=== PATIENT | female | born 1930 | race Caucasian/White ===

== ENCOUNTER 2018-03-01 07:47 | Inpatient (IN) ==
--- NOTE | 2018-03-01 07:53 | ED ---
HPI General Chief complaint: Neuro Symptoms/Deficit Stated complaint: Emergent Time Seen by Provider: 03/01/18 07:49 Source: EMS Mode of arrival: EMS Limitations: language barrier (Aphasic) and altered mental status History of Present Illness HPI narrative: Elderly female brought in by EMS for altered mental status. The patient was reportedly found by a friend at home, slumped to the left side in a kitchen chair. She was last seen normal sometime yesterday morning but had today 's newspaper on the table in front of her. The patient is non-verbal and unable to contribute any information to HPI. Her name is reportedly Lynn. Unknown past medical history. Related Data Allergies Allergy/AdvReac Type Severity Reaction Status Date / Time No Allergy Information Allergy Unverified 03/01/18 07:50 Available Review of Systems ROS Unobtainable ROS Unobtainable: unobtainable due to mental status PMFSH History History Provided By: Online Content Coordinator / EMT Medical History Medical History HTN (hypertension) (Acute) Medical history unknown (Acute) Surgical history unknown (Acute) Social History Social History Substance History: Unable to Obtain Smoking Status: Unknown if ever smoked How Often Do You Have a Drink Containing Alcohol: Unable to Obtain Recent Travel in [facility] within the Last 8 Weeks: No Recent Out of Country Travel within the Last 8 Weeks: No Exam Const Other: Non-verbal, no acute distress HENMT Other: Left-sided facial paresis Eyes Pupils: PERRL Chest Chest: normal inspection of the chest Resp Effort & Inspection: normal respiratory effort Auscultation: no rhonchi and no wheezes Cardio Rate: regular rate Rhythm: regular rhythm GI Inspection: non-distended Palpation: soft and nontender Skin General: no rashes or lesions noted Neuro Other: No movement against gravity of RUE or RLE 4/5 motor strength of LUE, spontaneous movement of LLE but does not follow commands Non-verbal Left-sided facial droop Extrem Other: 2+ pitting edema to knee of left lower extremity to knee Course Initial Documented Vital Signs Temperature 98.0 F 03/01/18 07:48 Pulse Rate 87 03/01/18 07:48 Respiratory Rate 19 03/01/18 07:48 Blood Pressure 199/87 H 03/01/18 07:48 Pulse Oximetry 98 03/01/18 07:48 Last Documented Vital Signs Temperature 98.0 F 03/01/18 07:48 Pulse Rate 75 03/01/18 07:50 Respiratory Rate 19 03/01/18 07:48 Blood Pressure 199/87 H 03/01/18 07:48 Pulse Oximetry 98 03/01/18 07:56 NIH Stroke Scale NIHSS Time Completed NIHSS Time Completed: 07:52 NIH Stroke Scale Level of Consciousness: 0-Alert Orientation Questions: 2-Neither task correct Responds to Commands: 2-Neither task correct Gaze Eye Movement: 0-Horizontal movement WNL Visual [place]: 0-No visual field defect (Unable to assess, non-verbal) Facial Movement: 3-Complete unilateral palsy Motor Functions Arm LEFT: 0-No drift Motor Functions Arm RIGHT: 3-No effort against gravity Motor Functions Leg LEFT: 1-Drift before 5 seconds Motor Functions Leg RIGHT: 3-No effort against gravity Limb Ataxia: 0-No ataxia (Unable to assess) Sensory Loss: 0-No sensory loss (Unable to assess) Best Language: 3-Mute or global aphasia Articulation: UN-Intubated / Barriers (Non-verbal) Extinction or Inattention Sensory: 0-Absent (Unable to assess) Total: 17 Medical Decision Making [facility] Narrative Medical decision making narrative: Assessment: Elderly female presenting with altered mental status, suspected stroke, unknown time of onset (last seen normal yesterday) Plan: EKG and monitor [facility] Labs CXR CTH A stroke alert was not called as onset time is estimated to be approximately 24 hrs ago Addendum: Case discussed with Dr. Chatterjee of [facility]; patient requires inpatient admission for acute ischemic CVA. Medical Screen Exam Complete: Yes Emergency Medical Condition: Yes Differential Diagnosis Differential Diagnosis: Differential diagnosis includes, but is not limited to: CVA, ICH, arrhythmia, lab abnormality Lab Data Lab results reviewed: Yes I reviewed the patient's lab results. Result diagrams: 03/01/18 07:50 03/01/18 07:50 Lab Results 03/01/18 03/01/18 03/01/18 Range/Units 07:50 07:50 07:50 WBC 8.7 (4.0-11.0) th/mm3 RBC 3.99 L (4.00-5.30) mil/mm3 Hgb 13.6 (11.6-15.3) gm/dL Hct 40.5 (35.0-46.0) % MCV 101.4 H (80.0-100.0) fL MCH 34.2 H (27.0-34.0) pg MCHC 33.7 (32.0-36.0) % RDW 13.6 (11.6-17.2) % Plt Count 242 (150-450) th/mm3 MPV 9.1 (7.0-11.0) fL Prelim Diff (Auto) [employer] Client [employer] Analyst Neut % (Auto) 70.5 H (16.0-70.0) % Lymph % (Auto) 16.6 (9.0-44.0) % [place] % (Auto) 11.1 H (0.0-8.0) % Eos % (Auto) 1.1 (0.0-4.0) % Baso % (Auto) 0.7 (0.0-2.0) % Neut # (Auto) 6.1 (1.8-7.7) th/mm3 Lymph # (Auto) 1.4 (1.0-4.8) th/mm3 [place] # (Auto) 1.0 H (0.0-0.9) th/mm3 Eos # (Auto) 0.1 (0.0-0.4) th/mm3 Baso # (Auto) 0.1 (0.0-0.2) th/mm3 WBC Differential . Differential Comment Auto diff final PT 11.1 (9.8-11.6) sec INR 1.1 Ratio APTT 23.8 (23.4-31.7) sec Sodium 137 (136-145) meq/L Potassium 3.7 (3.5-5.1) meq/L Chloride 104 (98-107) meq/L Carbon Dioxide 24.7 (21.0-32.0) meq/L Anion Gap 8 (5-15) meq/L BUN 14 (7-18) mg/dL Creatinine 0.88 (0.50-1.00) mg/dL Estimated GFR 55 L (>89) mL/min POC Glucose (68-110) mg/dl Random Glucose 106 (74-106) mg/dL Calcium 8.9 (8.5-10.1) mg/dL Magnesium 2.0 (1.5-2.5) mg/dL Total Bilirubin 0.5 (0.2-1.0) mg/dL AST 15 (15-37) U/L ALT 14 (10-53) U/L Alkaline Phosphatase 100 (45-117) U/L Troponin I Less than 0.02 L (0.02-0.05) ng/mL Total Protein 8.2 (6.4-8.2) g/dL Albumin 3.5 (3.4-5.0) g/dL TSH 5.570 H (0.358-3.740) uIU/mL Urine Color (Yellw/Straw) Urine Clarity (Clear) Urine pH (5.0-8.5) Ur Specific [place] (1.002-1.035) Urine Protein (Neg-Trace) mg/dL Urine Glucose (UA) (Negative) mg/dL Urine Ketones (Negative) mg/dL Urine Occult Blood (Negative) Urine Nitrate (Negative) Urine Bilirubin (Negative) Urine Urobilinogen (Less than 2) mg/dL Ur Leukocyte Esterase (Negative) Urine RBC (0-3) /hpf Urine WBC (0-5) /hpf Urine Bacteria (None) /hpf Micro UA Comment Ur Microscopic Review Urine Culture Comments 03/01/18 03/01/18 Range/Units 07:52 08:15 WBC (4.0-11.0) th/mm3 RBC (4.00-5.30) mil/mm3 Hgb (11.6-15.3) gm/dL Hct (35.0-46.0) % MCV (80.0-100.0) fL MCH (27.0-34.0) pg MCHC (32.0-36.0) % RDW (11.6-17.2) % Plt Count (150-450) th/mm3 MPV (7.0-11.0) fL Prelim Diff (Auto) Neut % (Auto) (16.0-70.0) % Lymph % (Auto) (9.0-44.0) % [place] % (Auto) (0.0-8.0) % Eos % (Auto) (0.0-4.0) % Baso % (Auto) (0.0-2.0) % Neut # (Auto) (1.8-7.7) th/mm3 Lymph # (Auto) (1.0-4.8) th/mm3 [place] # (Auto) (0.0-0.9) th/mm3 Eos # (Auto) (0.0-0.4) th/mm3 Baso # (Auto) (0.0-0.2) th/mm3 WBC Differential Differential Comment PT (9.8-11.6) sec INR Ratio APTT (23.4-31.7) sec Sodium (136-145) meq/L Potassium (3.5-5.1) meq/L Chloride (98-107) meq/L Carbon Dioxide (21.0-32.0) meq/L Anion Gap (5-15) meq/L BUN (7-18) mg/dL Creatinine (0.50-1.00) mg/dL Estimated GFR (>89) mL/min POC Glucose 108 (68-110) mg/dl Random Glucose (74-106) mg/dL Calcium (8.5-10.1) mg/dL Magnesium (1.5-2.5) mg/dL Total Bilirubin (0.2-1.0) mg/dL AST (15-37) U/L ALT (10-53) U/L Alkaline Phosphatase (45-117) U/L Troponin I (0.02-0.05) ng/mL Total Protein (6.4-8.2) g/dL Albumin (3.4-5.0) g/dL TSH (0.358-3.740) uIU/mL Urine Color Yellow (Yellw/Straw) Urine Clarity Clear (Clear) Urine pH 6.0 (5.0-8.5) Ur Specific [place] 1.005 (1.002-1.035) Urine Protein Negative (Neg-Trace) mg/dL Urine Glucose (UA) Negative (Negative) mg/dL Urine Ketones Negative (Negative) mg/dL Urine Occult Blood Negative (Negative) Urine Nitrate Positive H (Negative) Urine Bilirubin Negative (Negative) Urine Urobilinogen Less than 2 (Less than 2) mg/dL Ur Leukocyte Esterase Small H (Negative) Urine RBC 1 (0-3) /hpf Urine WBC 12 H (0-5) /hpf Urine Bacteria Few H (None) /hpf Micro UA Comment Cath-culture ind Ur Microscopic Review Microscopic reviewed Urine Culture Comments Cath-cult indicated Imaging Data Radiologist's impression: Chest X-Ray 03/01/18 07:50 CONCLUSION: 1. Cardiomegaly. 2. No focal infiltrate or pulmonary vascular congestion. Head CT 03/01/18 07:50 CONCLUSION: 1. Mild cerebral atrophy. 2. 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 3. No acute infarct, acute hemorrhage, midline shift or extra-axial fluid collections. . ECG Data Attestation: I personally reviewed and interpreted this ECG as follows: Interpretation: Rate: 92 BPM Rhythm: Sinus with bigeminy [place]: Normal Intervals: QTc 412 ms Q waves: aVL, V2 T waves: Inverted in III ST segments: No elevations or depressions Impression: Non-specific EKG, bigeminy, no previous EKG available for comparison Discharge Plan Discharge Disposition Patient Disposition: ED Admit(ED Internal Use Only) Discharge Condition Condition: Stable Discharge Order Discharge Orders: ED Use Only Admit Order (Routine); Ordered 03/01/18 Ordered By: Mariposa Marte Discharge Details Diagnosis: Neurologic deficit due to acute ischemic cerebrovascular accident (CVA) Physicians Team ED Provider: Mariposa Marte Primary Care Provider: UNKNOWN, Status ED Status: Pending Admission
--- NOTE | 2018-03-01 08:16 | CT ---
EXAM DATE: 03/01/2018 8:10 AM EST AGE/SEX: 89 years / Female INDICATIONS: Altered mental status. Left sided facial droop and right sided weakness. CLINICAL DATA: This is the patient's initial encounter. Patient reports that signs and symptoms have been present for 1 day and indicates a pain score of Nonresponsive. MEDICAL/SURGICAL HISTORY: Non-responsive. Non-responsive. RADIATION DOSE: 34.26 CTDI (mGy) COMPARISON: No prior exams available for comparison. TECHNIQUE: CT of the head without contrast. Using automated exposure control and adjustment of the mA and/or kV according to patient size, radiation dose was kept as low as reasonably achievable to ob tain optimal diagnostic quality images. DICOM format image data is available electronically for revi ew and comparison. FINDINGS: Cerebrum: Mild cerebral atrophy is noted. 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 There is no acute infarct, acute hemorrhage, midline shift or extra-axial fluid collections. Posterior Fossa: The cerebellum and brainstem are intact. The 4th ventricle is midline. The cerebe llopontine angle is unremarkable. Extracranial: The visualized portion of the orbits is intact. Skull: The calvaria is intact. No evidence of skull fracture. CONCLUSION: 1. Mild cerebral atrophy. 2. 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 3. No acute infarct, acute hemorrhage, midline shift or extra-axial fluid collections. . Electronically signed by: Charles Pineda MD Board Certified Radiologist 03/01/2018 8:15 AM EST
--- NOTE | 2018-03-01 08:33 | XR ---
EXAM DATE: 03/01/2018 8:26 AM EST AGE/SEX: 89 years / Female INDICATIONS: Shortness of breath, non-responsive. CLINICAL DATA: This is the patient's initial encounter. Patient reports that signs and symptoms have been present for 1 day and indicates a pain score of Nonresponsive. MEDICAL/SURGICAL HISTORY: Non-responsive. Non-responsive. COMPARISON: No prior exams available for comparison. FINDINGS: The heart is enlarged. The pulmonary vascular pattern is normal. The lungs are clear. CONCLUSION: 1. Cardiomegaly. 2. No focal infiltrate or pulmonary vascular congestion. Electronically signed by: Charles Pineda MD Board Certified Radiologist 03/01/2018 8:32 AM EST
[2018-03-01 08:45] LABS: Baso # (Auto) 0.1 th/mm3 (0.0-0.2); Baso % (Auto) 0.7 % (0.0-2.0); Eos # (Auto) 0.1 th/mm3 (0.0-0.4); Eos % (Auto) 1.1 % (0.0-4.0); Hematocrit 40.5 % (35.0-46.0); Hemoglobin 13.6 gm/dL (11.6-15.3); Lymph # (Auto) 1.4 th/mm3 (1.0-4.8); Lymph % (Auto) 16.6 % (9.0-44.0); Mean Corpuscular HGB Conc 33.7 % (32.0-36.0); Mean Corpuscular Hemoglobin 34.2 pg (27.0-34.0); Mean Corpuscular Volume 101.4 fL (80.0-100.0); Mean Platelet Volume 9.1 fL (7.0-11.0); Mono % (Auto) 11.1 % (0.0-8.0); Neut # (Auto) 6.1 th/mm3 (1.8-7.7); Neut % (Auto) 70.5 % (16.0-70.0); Platelet Count 242 th/mm3 (150-450); Red Blood Count 3.99 mil/mm3 (4.00-5.30); Red Cell Distribution Width 13.6 % (11.6-17.2); White Blood Count 8.7 th/mm3 (4.0-11.0)
[2018-03-01 08:49] LABS: Bacteria,Urine Few /hpf; Bilirubin,Urine Negative (Negative); Clarity,Urine Clear (Clear); Color,Urine Yellow (Yellw/Straw); Glucose,Urine (UA) Negative (Negative); Leukocyte Esterase,Urine Small (Negative); Nitrite,Urine Positive (Negative); Specific Gravity,Urine 1.005 (1.002-1.035)
[2018-03-01 08:56] LABS: Activated Partial Thrombo Time 23.8 sec (23.4-31.7); INR 1.1 Ratio; Prothrombin Time 11.1 sec (9.8-11.6)
[2018-03-01 09:03] LABS: Albumin 3.5 g/dL (3.4-5.0); Anion Gap 8 meq/L (5-15); Aspartate Aminotransferase 15 U/L (15-37); Blood Urea Nitrogen 14 mg/dL (7-18); Calcium 8.9 mg/dL (8.5-10.1); Carbon Dioxide 24.7 meq/L (21.0-32.0); Chloride 104 meq/L (98-107); Glomerular Filtration Rate 55 mL/min (>89); Glucose,Random 106 mg/dL (74-106); Potassium 3.7 meq/L (3.5-5.1); Sodium 137 meq/L (136-145)
[2018-03-01 09:04] LABS: Alanine Aminotransferase 14 U/L (10-53)
[2018-03-01 09:14] LABS: Alkaline Phosphatase 100 U/L (45-117); Total Protein 8.2 g/dL (6.4-8.2)
[2018-03-01] MEDS ORDERED: Bisacodyl 10 MG Supp RECTAL PRN (09:37)
[2018-03-01] MEDS ORDERED: Labetalol HCl Inj 100 MG/20 ML Vial IV.PUSH PRN ×2 (09:41→10:00)
[2018-03-01] MEDS ORDERED: Dextrose 50% in Water 50 ML Vial IV.PUSH PRN (09:41)
--- NOTE | 2018-03-01 09:53 | CT ---
EXAM DATE: 03/01/2018 9:45 AM EST AGE/SEX: 89 years / Female INDICATIONS: Left sided facial droop and right sided weakness. CLINICAL DATA: This is the patient's initial encounter. Patient reports that signs and symptoms have been present for 1 day and indicates a pain score of Nonresponsive. MEDICAL/SURGICAL HISTORY: Non-responsive. Non-responsive. RADIATION DOSE: 9.29 CTDI (mGy) ; Combined studies COMPARISON: . TECHNIQUE: Volumetric scanning was performed using a multi-row detector CT scanner during bolus infu aec of 95 ml Omnipaque 350 (iohexol) nonionic water-soluble contrast as a cumulative dose for multi ple exams. The data was post processed with a variety of visualization algorithms including full vo lume maximum intensity projection, multi-planar sliding thin slab reformation, curved planar reformat ion, and surface rendering techniques. Using automated exposure control and adjustment of the mA and /or kV according to patient size, radiation dose was kept as low as reasonably achievable to obtain o ptimal diagnostic quality images. DICOM format image data is available electronically for review and comparison. FINDINGS: The left internal carotid artery is totally occluded. There is poor reconstitution of the left anteri or and middle cerebral vessels. The right MCA is unremarkable. Right INTRUSION ANALYST is unremarkable. The left PC A is notable for moderate disease in the PII-III segments. CONCLUSION: Totally occluded left internal carotid artery with very tenuous intracranial flow reconstitution of t he anterior circulation vessels on the left Electronically signed by: Delfino Watson MD Board Certified Radiologist 03/01/2018 9:52 AM EST
--- NOTE | 2018-03-01 09:53 | CT ---
EXAM DATE: 03/01/2018 9:49 AM EST AGE/SEX: 89 years / Female INDICATIONS: Left sided facial droop, right sided weakness. CLINICAL DATA: This is the patient's initial encounter. Patient reports that signs and symptoms have been present for 1 day and indicates a pain score of Nonresponsive. MEDICAL/SURGICAL HISTORY: Non-responsive. Non-responsive. RADIATION DOSE: 9.29 CTDI (mGy) ; Combined studies COMPARISON: No prior exams available for comparison. TECHNIQUE: Volumetric scanning was performed using a multirow detector CT scanner during bolus infus ion of 95 ml Omnipaque 350 (iohexol) nonionic water-soluble contrast as a cumulative dose for multip le exams. The data was postprocessed with a variety of visualization algorithms including full-volu me maximum intensity projection, multiplanar sliding thin-slab reformation, curved-planar reformation , and surface-rendering techniques. Using automated exposure control and adjustment of the mA and/or kV according to patient size, radiation dose was kept as low as reasonably achievable to obtain opti mal diagnostic quality images. DICOM format image data is available electronically for review and co mparison. FINDINGS: Aortic Arch: There is a three-vessel origin of the great vessels from the aorta. No evidence of ost ial narrowing Right Carotid: The common carotid artery is intact. The carotid bulb has a normal configuration wit hout ulceration or narrowing. The internal carotid artery lumen is smooth without stenosis. The ext ernal carotid artery is intact. Left Carotid: The common carotid artery is intact. The carotid bulb has a normal configuration with out ulceration or narrowing. There is occlusion of the left proximal internal carotid artery. The ext ernal carotid artery is intact. Vertebrals: The vertebral arteries have a symmetric diameter. No stenotic lesions are seen. Percent stenosis is calculated using the diameter of the stenotic region over the diameter of the nor mal distal internal carotid artery. CONCLUSION: 1. 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 Electronically signed by: Charles Pineda MD Board Certified Radiologist 03/01/2018 9:52 AM EST
[2018-03-01] MEDS ORDERED: Aspirin 300 MG Supp RECTAL ONE (09:59)
[2018-03-01 10:10] LABS: Amphetamine Screen,Urine Neg (Neg); Barbiturate Screen,Urine Neg (Neg); Cannabinoid Screen,Urine Neg (Neg); Cocaine Screen,Urine Neg (Neg)
[2018-03-01 10:24] LABS: Opiate Screen,Urine Neg (Neg)
--- NOTE | 2018-03-01 10:59 | MR ---
EXAM DATE: 03/01/2018 10:31 AM EST AGE/SEX: 89 years / Female INDICATIONS: Altered mental status. Aphasia. CLINICAL DATA: This is the patient's initial encounter. Patient reports that signs and symptoms have been present for 1 day and indicates a pain score of 0/10. MEDICAL/SURGICAL HISTORY: . Unknown. . Unknown. COMPARISON: [facility] [place], CTA HEAD W CONTRAST W 3D, 03/01/2018. [facility] [place], CT HEAD W/O CONTRAST, 03/01/2018. . TECHNIQUE: Multiplanar, multisequence examination of the brain was performed without contrast. FINDINGS: Cerebrum: There is evidence of a large area of signal abnormality involving almost the entire left p arietal lobe as well as patchy areas within the left basal ganglia and left temporal lobe consistent with acute/subacute infarct in the left middle cerebral artery distribution. Tiny focal areas of sign al abnormality are also noted involving the right occipital cortex on the diffusion-weighted images s uggesting small acute/subacute cortical infarcts within the right posterior cerebral artery distribut ion. No acute hemorrhage is noted. There is an old lacunar infarct involving the genu of the corpus c allosum. Diffuse cerebral atrophy is noted. There is no midline shift or extra-axial bleed. No flow-v oid is identified within the left internal cerebral artery and visualized portion of the left middle cerebral artery. White Matter: Scattered periventricular white matter small vessel ischemic changes are noted bilatera lly. Posterior Fossa: The cerebellum and brainstem are intact. The 4th ventricle is midline. The ce rebellopontine angle is unremarkable. The cerebellar tonsils are normal in position. Diffusion Imaging: No focal areas of restricted diffusion are seen. No evidence of acute infarction . Extracranial: The visualized portions of the orbits and paranasal sinuses are unremarkable. CONCLUSION: 1. Evidence of a large area of signal abnormality involving almost the entire left parietal lobe as well as patchy areas within the left basal ganglia and left temporal lobe consistent with acute/subac coy infarct in the left middle cerebral artery distribution. 2. Tiny focal areas of signal abnormality are also noted involving the right occipital cortex on the diffusion-weighted images suggesting small acute/subacute cortical infarcts within the right posteri or cerebral artery distribution. 3. No flow-void is identified within the left internal cerebral artery and visualized portion of the left middle cerebral artery. 4. No acute hemorrhage, midline shift or extra-axial bleed. 5. 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 6. Diffuse cerebral atrophy. Electronically signed by: Charles Pineda MD Board Certified Radiologist 03/01/2018 10:58 AM EST
--- NOTE | 2018-03-01 11:29 | ECHRPT ---
Indication: CVA/TIA CONCLUSIONS The left ventricular systolic function is normal with an estimated ejection fraction in the range of 60-65%. Normal left ventricular size. Mild to moderate concentric left ventricular hypertrophy. No regional wall motion abnormalities are present. The right atrial size is moderately dilated. The left atrial size is moderately dilated. Mild mitral annular calcification. Trace mitral valve regurgitation. There is mild tricuspid regurgitation. The estimated pulmonary arterial pressure is 44 mmHg. BP: / HR: Rhythm: Atrial fibrillation MEASUREMENTS (Male / Female) Normal Values Technical Quality:Excellent 2D ECHO LV Diastolic Diameter PLAX 3.9 cm 4.2 - 5.9 / 3.9 - 5.3 cm LV Systolic Diameter PLAX 2.8 cm IVS Diastolic Thickness 1.0 cm 0.6 - 1.0 / 0.6 - 0.9 cm LVPW Diastolic Thickness 1.0 cm 0.6 - 1.0 / 0.6 - 0.9 cm LV Relative Wall Thickness 0.5 LVOT Diameter 1.8 cm M-MODE Aortic Root Diameter MM 2.1 cm LA Systolic Diameter MM 4.7 cm LA Ao Ratio MM 2.2 AV Cusp Separation MM 1.5 cm DOPPLER AV Peak Velocity 114.0 cm/s AV Peak Gradient 5.2 mmHg LVOT Peak Velocity 92.8 cm/s LVOT Peak Gradient 3.4 mmHg AV Area Cont Eq pk 2.1 cm MV Area PHT 6.5 cm LV E' Lateral Velocity 12.8 cm/s LV E' Septal Velocity 2.9 cm/s TR Peak Velocity 292.0 cm/s TR Peak Gradient 34.1 mmHg Right Atrial Pressure 10.0 mmHg Pulmonary Artery Systolic Pressu 44.1 mmHg Right Ventricular Systolic Press 44.1 mmHg PV Peak Velocity 130.0 cm/s PV Peak Gradient 6.8 mmHg FINDINGS LEFT VENTRICLE The left ventricular systolic function is normal with an estimated ejection fraction in the range of 60-65%. Normal left ventricular size. Mild to moderate concentric left ventricular hypertrophy. No regional wall motion abnormalities are present. RIGHT VENTRICLE Normal right ventricular size and systolic function. LEFT ATRIUM The left atrial size is moderately dilated. RIGHT ATRIUM The right atrial size is moderately dilated. ATRIAL SEPTUM Normal atrial septal thickness without atrial level shunting by limited color doppler interrogation. AORTA The aortic root and proximal ascending aorta are normal in size on limited imaging. MITRAL VALVE Mild mitral annular calcification. Trace mitral valve regurgitation. AORTIC VALVE Trileaflet aortic valve. No aortic valve stenosis or regurgitation. TRICUSPID VALVE Structurally normal tricuspid valve. There is mild tricuspid regurgitation. The estimated pulmonary arterial pressure is 44 mmHg. PULMONARY VALVE Trivial pulmonary valve regurgitation. VESSELS The inferior vena cava is normal in size. PERICARDIUM No pericardial effusion. Thierno Dawson MD (Electronically Signed) Final Date:01 March 2018 11:28
[2018-03-01] MEDS: Sod Chloride 0.9% Inj 1,000 ML IV.CONT SCH (11:45)
--- NOTE | 2018-03-01 12:09 | P.HPIM ---
History of Present Illness Primary Care Physician: UNKNOWN Chief Complaint: Found unresponsive History of Present Illness: Edda is an elderly female who was found unresponsive by her neighbor. She was sitting on the chair. She has right facial droop and right sided weakness. She was last seen normal yesterday morning. Discussed with her neighbor and son, she has history of hypertension and chronic left lower extremity lymphedema. No previous surgeries. She does not smoke and occasionally drinks. She takes Norvasc, Lasix and potassium. 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 EKG interpreted by me with atrial fibrillation with bigeminy. All other systems reviewed negative Inpatient Certification Inpatient Certification: I certify that the inpatient services were ordered in accordance with Medicare regulations governing the order. This includes certification that hospital inpatient services are reasonable and necessary and in the case of services not specified as inpatient-only under 42 CFR 419.22(n), that they are appropriately provided as inpatient services in accordance to with the 2-midnight benchmark under 43 CFR 412.3(e) Estimated Total Length of Stay (Days): 2 Plans for Post Hospital Care: SNF Review of Systems Review of Systems: all other systems reviewed are negative [facility] Medical History Medical History HTN (hypertension) (Acute) Medical history unknown (Acute) Surgical history unknown (Acute) Social History Social History Substance History: Unable to Obtain Smoking Status: Unknown if ever smoked How Often Do You Have a Drink Containing Alcohol: Unable to Obtain Recent Travel in [facility] within the Last 8 Weeks: No Recent Out of Country Travel within the Last 8 Weeks: No Immunization History Tetanus Immunization: Unable to Assess Medications and Allergies Allergies Allergy/AdvReac Type Severity Reaction Status Date / Time No Allergy Information Allergy Unverified 03/01/18 07:50 Available Home Medications Medication Instructions Recorded Confirmed Type amlodipine 10 mg PO DAILY 03/01/18 03/01/18 History furosemide 20 mg PO DAILY 03/01/18 03/01/18 History potassium chloride 10 meq PO DAILY 03/01/18 03/01/18 History Active Medications: Active Medications Al Hydroxide/Mg Hydroxide (Milk Of Magnesia Liq) 30 ml PO Q12H PRN PRN Reason: Mild Constipation Aspirin (Aspirin Supp) 300 mg RECTAL DAILY GOMEZ Bisacodyl (Dulcolax Supp) 10 mg RECTAL DAILY PRN PRN Reason: SEVERE CONSITIPATION Dextrose (D50w Vial) 50 ml IV.PUSH UNSCH PRN PRN Reason: PER HYPOGLYCEMIA PROTOCOL Enalaprilat (Vasotec Inj) 1.25 mg IV.PUSH Q4H PRN PRN Reason: For SBP > 220 or DBP > 120 Glucagon (Glucagon Inj) 1 mg OTHER UNSCH PRN PRN Reason: for Hypoglycemia Protocol Sodium Chloride (Ns Inj) 1,000 mls @ 70 mls/hr IV.CONT .[id number] [facility] Insulin Aspart (Novolog Insulin Correctional Sugar Inj) 0 unit SQ ACHS GOMEZ; Protocol Labetalol HCl (Trandate Inj) 10 mg IV.PUSH Q2H PRN PRN Reason: For SBP > 220 or DBP > 120 Lactulose (Lactulose Liq) 30 ml PO DAILY PRN PRN Reason: SEVERE CONSITIPATION Pantoprazole Sodium (Protonix Inj) 40 mg IV.PUSH Q24H GOMEZ Senna/Docusate Sodium (Denisha-Colace) 1 tab PO BID [facility] Sennosides (Senokot) 17.2 mg PO Q12H PRN PRN Reason: Moderate Constipation Sodium Chloride (Ns Flush) 2 ml IV.FLUSH BID GOMEZ Sodium Chloride (Ns Flush) 2 ml IV.FLUSH PRN PRN PRN Reason: FLUSH AFTER USING IV ACCESS Physical Exam Vital signs: Last Vital Signs Temp 98.0 F 03/01/18 07:48 Pulse 117 H 03/01/18 11:30 Resp 20 03/01/18 08:15 BP 137/83 03/01/18 11:30 Pulse Ox 96 03/01/18 11:30 Intake & Output 02/27/18 02/28/18 03/01/18 03/02/18 06:59 06:59 06:59 06:59 Output Total 700 / 700 Balance -700 / -700 Weight 72.91 kg Narrative: GENERAL: Well-nourished in no distress. SKIN: Warm and dry. HEAD: Atraumatic. Normocephalic. EYES: Pupils equal and round. No scleral icterus. No injection or drainage. ENT: No nasal bleeding or discharge. Mucous membranes pink and moist. NECK: Trachea midline. No JVD. CARDIOVASCULAR: Irregularly irregular RESPIRATORY: No accessory muscle use. Clear to auscultation. Breath sounds equal bilaterally. GASTROINTESTINAL: Abdomen soft, non-tender, nondistended. MUSCULOSKELETAL: Extremities without clubbing, cyanosis left lower extremity pitting edema. No obvious deformities. NEUROLOGICAL: Lethargic awakens with painful stimuli obvious right facial droop , right upper and left lower extremity weakness Results Labs CBC & Chem 7: 03/01/18 07:50 03/01/18 07:50 Imaging Impressions Chest X-Ray 03/01/18 07:50 CONCLUSION: 1. Cardiomegaly. 2. No focal infiltrate or pulmonary vascular congestion. Head CT 03/01/18 07:50 CONCLUSION: 1. Mild cerebral atrophy. 2. 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 3. No acute infarct, acute hemorrhage, midline shift or extra-axial fluid collections. . Head CTA 03/01/18 08:16 CONCLUSION: Totally occluded left internal carotid artery with very tenuous intracranial flow reconstitution of the anterior circulation vessels on the left Neck CTA 03/01/18 08:16 CONCLUSION: 1. 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 Head MRI 03/01/18 08:17 CONCLUSION: 1. Evidence of a large area of signal abnormality involving almost the entire left parietal lobe as well as patchy areas within the left basal ganglia and left temporal lobe consistent with acute/subacute infarct in the left middle cerebral artery distribution. 2. Tiny focal areas of signal abnormality are also noted involving the right occipital cortex on the diffusion-weighted images suggesting small acute/ subacute cortical infarcts within the right posterior cerebral artery distribution. 3. No flow-void is identified within the left internal cerebral artery and visualized portion of the left middle cerebral artery. 4. No acute hemorrhage, midline shift or extra-axial bleed. 5. 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 6. Diffuse cerebral atrophy. Caprini VTE Risk Assessment Caprini VTE Risk Assessment: Moderate/High Risk (score >= 2) Caprini Risk Assessment Model: Point Value = 1 Point Value = 2 Point Value = 3 Point Value = 5 Age 41-60 Minor surgery BMI > 25 kg/m2 Swollen legs Varicose veins or History of unexplained or recurrent spontaneous Oral contraceptives or hormone replacement Sepsis (< 1 month) Serious lung disease, including pneumonia (< 1 month) Abnormal pulmonary function Acute myocardial infarction Congestive heart failure (< 1 month) History of inflammatory bowel disease Medical patient at bed rest Age 61-74 Arthroscopic surgery Major open surgery (> 45 min) Laparoscopic surgery (> 45 min) Malignancy Confined to bed (> 72 hours) Immobilizing plaster cast Central venous access Age >= 75 History of VTE Family history of VTE Factor V Leiden Prothrombin [id number] Lupus anticoagulant Anticardiolipin antibodies Elevated serum homocysteine Heparin-induced thrombocytopenia Other congenital or acquired thrombophilia Stroke (< 1 month) Elective arthroplasty Hip, pelvis, or leg fracture Acute spinal cord injury (< 1 month) Prophylaxis Regimen: Total Risk Factor Score Risk Level Prophylaxis Regimen 0-1 Low Early ambulation 2 Moderate Order ONE of the following: *Sequential Compression Device (SCD) *Heparin 5000 units SQ BID 3-4 Higher Order ONE of the following medications: *Heparin 5000 units SQ TID *Enoxaparin/Lovenox 40 mg SQ daily (WT < 150 kg, CrCl > 30 mL/min) *Enoxaparin/Lovenox 30 mg SQ daily (WT < 150 kg, CrCl > 10-29 mL/min) *Enoxaparin/Lovenox 30 mg SQ BID (WT < 150 kg, CrCl > 30 mL/min) AND/OR *Sequential Compression Device (SCD) 5 or more Highest Order ONE of the following medications: *Heparin 5000 units SQ TID (Preferred with Epidurals) *Enoxaparin/Lovenox 40 mg SQ daily (WT < 150 kg, CrCl > 30 mL/min) *Enoxaparin/Lovenox 30 mg SQ daily (WT < 150 kg, CrCl > 10-29 mL/min) *Enoxaparin/Lovenox 30 mg SQ BID (WT < 150 kg, CrCl > 30 mL/min) AND *Sequential Compression Device (SCD) Assessment and Plan Plan This is a elderly female was found unresponsive by her neighbor. She was sitting on the chair. She has right facial droop and right sided weakness. She was last seen normal yesterday morning. Discussed with her neighbor and son , she has history of hypertension and chronic left lower extremity lymphedema. No previous surgeries. She does not smoke and occasionally drinks. She takes Norvasc, Lasix and potassium. 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 EKG interpreted by me with atrial fibrillation with bigeminy. 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 Patient will be admitted to ICU with stroke workup follow-up echocardiogram, lipid profile and A1c. Head of bed flat, permissive hypertension and start aspirin per rectum. Consult neurology, PT/OT/ST. New-onset A. fib. Cardizem drip as needed to keep heart rate less than 100. Check TSH and echocardiogram Abnormal urinalysis. Follow-up urine culture DVT prophylaxis with SCD and early ambulation. Pharmacological prophylaxis per neurology.
[2018-03-01] MEDS: Pantoprazole Inj 40 MG Vial IV.PUSH SCH (12:47)
[2018-03-01] MEDS: Insulin NovoLOG Aspart Correctional Sugar Inj SQ SCH ×3 (12:48→20:47)
[2018-03-01] MEDS: dilTIAZem Inj 125 MG in Sodium Chlor 0.9% Inj 100 ML IV.CONT PRN (15:57)
[2018-03-01] MEDS ORDERED: Phenylephrine Inj 40 MG in Sodium Chlor 0.9% Inj 496 ML IV.CONT PRN (17:24)
[2018-03-01] MEDS: Potassium Chlor 20 mEq Premix 20 MEQ/100 ML PIGGYBACK IV.SIG SCH ×2 (18:22→20:10)
[2018-03-01] MEDS: Senna/Docusate Sodium 8.6/50 MG Tablet PO SCH (20:10)
[2018-03-01] MEDS: Metoprolol Tartrate 25 MG Tablet PO SCH (20:10)
--- NOTE | 2018-03-01 20:29 | ECG ---
Date Performed: 03/01/2018 Time Performed: 07:56:51 PTAGE: 89 years EKG: ATRIAL FIBRILLATION WITH ABERRANT CONDUCTION OR VENTRICULAR PREMATURE COMPLEXES MINIMAL VOL TAGE CRITERIA FOR LVH, CONSIDER NORMAL VARIANT ST DEVIATION AND MODERATE T-WAVE ABNORMALITY, CONSIDER INFERIOR ISCHEMIA ABNORMAL ECG NO PREVIOUS TRACING DOCTOR: Brina Warner Interpretating Date/Time 03/01/2018 20:26:26
[2018-03-02] MEDS: Sod Chloride 0.9% Inj 1,000 ML IV.CONT SCH ×2 (04:12→15:40)
[2018-03-02 04:37] LABS: Albumin 3.4 g/dL (3.4-5.0); Anion Gap 11 meq/L (5-15); Aspartate Aminotransferase 29 U/L (15-37); Blood Urea Nitrogen 17 mg/dL (7-18); Calcium 8.5 mg/dL (8.5-10.1); Carbon Dioxide 23.5 meq/L (21.0-32.0); Chloride 106 meq/L (98-107); Glomerular Filtration Rate 55 mL/min (>89); Glucose,Random 121 mg/dL (74-106); Potassium 4.3 meq/L (3.5-5.1); Sodium 140 meq/L (136-145)
[2018-03-02 04:38] LABS: Alanine Aminotransferase 16 U/L (10-53); Cholesterol 209 mg/dL (120-200); Triglycerides 74 mg/dL (42-150)
[2018-03-02 04:41] LABS: Alkaline Phosphatase 99 U/L (45-117); Chol/HDL Ratio 2.35 Ratio; HDL Cholesterol 88.7 mg/dL (40.0-60.0); LDL Cholesterol,Calculated 106 mg/dL (0-99); Total Protein 8.2 g/dL (6.4-8.2)
[2018-03-02] MEDS: Insulin NovoLOG Aspart Correctional Sugar Inj SQ SCH ×4 (08:00→20:50)
[2018-03-02] MEDS: Metoprolol Tartrate 25 MG Tablet PO SCH (08:02)
[2018-03-02] MEDS: Senna/Docusate Sodium 8.6/50 MG Tablet PO SCH ×2 (08:02→20:49)
[2018-03-02] MEDS ORDERED: Aspirin 300 MG Supp RECTAL SCH (09:00)
[2018-03-02] MEDS: Pantoprazole Inj 40 MG Vial IV.PUSH SCH (12:02)
--- NOTE | 2018-03-02 13:57 | MB ---
cc: Daniele Silvestre MD, PhD DATE: 03/02/2018 REASON FOR CONSULTATION: Stroke. HISTORY OF PRESENT ILLNESS: Ms. Macario is an 88-year-old woman brought to the hospital by EMS for alteration in mental status. She was found at home by her friend, slumped to the left side with right-sided weakness, inability to talk, was brought to the hospital. She underwent evaluation with a CT scan of the brain which showed an old lacunar stroke in the posterior limb of the left internal capsule. Otherwise, unremarkable for age. She had a CT angiogram of the head as well showing a totally occluded left internal carotid artery with very tenuous intracranial flow with reconstitution of the anterior circulation vessels on the left side. Neck CTA showed occlusion of the proximal left internal carotid artery. The patient was also found to be in atrial fibrillation which apparently is new for her. She had an MRI of the brain obtained as well which indicates a large area of signal abnormality in the entire left parietal lobe and left basal ganglia and left temporal lobe, consistent with acute subacute infarction of the left MCA territory. Small focal abnormality in the right occipital cortex on diffusion images consistent with a small subacute-acute stroke in the right occipital lobe. There was evidence of left carotid occlusion, old lacunar infarction in the corpus callosum, as well as atrophy. PHYSICAL EXAMINATION: VITAL SIGNS: Blood pressure 157/77, pulse is 82. She is in atrial fibrillation, respirations 27, temperature 98.6 degrees. NEUROLOGIC: Higher cortical function: She is very lethargic but is arousable. She does not follow commands. She has no speech output. She neglects the right side. Cranial nerves: She had a right facial droop. She has left gaze preference. Pupils are 2 mm, reactive. Motor exam: She moves the left arm, left leg, but not the right arm, right leg. There is no withdrawal to noxious stimuli. Reflexes symmetric. LABORATORY DATA: White count 8700, hemoglobin 13.6, hematocrit 40%, platelet count 242,000. PT 11.1, INR 1.1, aPTT 23.8. Sodium is 140, potassium 4.3, chloride 106, CO2 of 23.5, BUN is 17, creatinine 0.95, GFR 55, glucose is 119. LDL 106, cholesterol 209, HDL 88.7. Tox screen negative. Urinalysis: pH is 6, specific gravity is 1.005. Positive nitrate, 12 WBCs. IMPRESSION: The patient has a large left middle cerebral artery stroke, left carotid occlusion, as well as a stroke in the right occipital lobe. The bilateral nature suggests cardioembolic although the left carotid occlusion may be a source for the left middle cerebral artery stroke. At this time, would not recommend anticoagulation because of the risk of hemorrhagic conversion. Repeat CT scan of the brain in 3-4 days. Consider anticoagulation at a later date. We will check an echocardiogram as well. Consider statin therapy as well. Also recommend rehabilitation medicine consultation. Daniele Silvestre MD, PhD GUERA/titus , 01:35 PM , 01:41 PM
--- NOTE | 2018-03-02 14:07 | P.PNIM ---
Subjective Interval history: Follow-up CVA. Remains lethargic awakens and withdraws from pain seen with neighbors Physical Exam Vital signs: Last Vital Signs Temp 98.8 F 03/02/18 12:00 Pulse 82 03/02/18 12:00 Resp 24 03/02/18 12:00 BP 138/73 03/02/18 12:00 Pulse Ox 98 03/02/18 12:00 Intake & Output 02/28/18 03/01/18 03/02/18 03/03/18 06:59 06:59 06:59 06:59 Intake Total 1300 / 1300 Output Total 1850 / 1850 175 / 175 Balance -550 / -550 -175 / -175 Weight 64.6 kg Narrative: GENERAL: Well-nourished in no distress. SKIN: Warm and dry. CARDIOVASCULAR: Irregularly irregular RESPIRATORY: No accessory muscle use. Clear to auscultation. Breath sounds equal bilaterally. GASTROINTESTINAL: Abdomen soft, non-tender, nondistended. MUSCULOSKELETAL: Extremities without clubbing, cyanosis left lower extremity pitting edema. No obvious deformities. NEUROLOGICAL: Lethargic awakens with painful stimuli obvious right facial droop , right upper and left lower extremity weakness Urinary Catheter Management Indwelling Urethral Catheter: Cath placed during this visit: yes Urethral indwelling: No Insertion date: 03/01/18 Results Labs CBC & Chem 7: 03/01/18 07:50 03/02/18 03:19 Labs: Microbiology 03/01/18 08:15 Catheterized Urine Urine Culture - Preliminary gram negative rods Procedures Procedures: none Assessment and Plan Plan This is a elderly female was found unresponsive by her neighbor. She was sitting on the chair. She has right facial droop and right sided weakness. She was last seen normal yesterday morning. Discussed with her neighbor and son , she has history of hypertension and chronic left lower extremity lymphedema. No previous surgeries. She does not smoke and occasionally drinks. She takes Norvasc, Lasix and potassium. 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 Patient encephalopathic awakens and withdraws from pain. Echocardiogram with EF of 60%. LDL 106 will start Lipitor. Continue aspirin discussed with neurology start anticoagulation in the next few days if patient stable. Consult dietitian for tube feeding. Continue PT, OT and STP New-onset A. fib. TSH therapeutic. Patient with controlled ventricular response on Lopressor, wean Cardizem drip to keep heart rate less than 100. Abnormal urinalysis With hypothermic. Currently normothermic on Rocephin Follow- up urine culture DVT prophylaxis with SCD and early ambulation. Pharmacological prophylaxis per neurology. Progress Note: Quality VTE Deep Vein Thrombosis/Pulmonary Embolism Present on Admission: No
[2018-03-02] MEDS: Metoprolol Tartrate 25 MG Tablet NG/OG SCH ×2 (15:36→20:49)
[2018-03-03] MEDS: dilTIAZem Inj 125 MG in Sodium Chlor 0.9% Inj 100 ML IV.CONT PRN ×2 (00:47→11:36)
[2018-03-03 03:43] LABS: ABG Base Excess -3.1 mmol/L (-2-2); ABG PCO2 33 mmHg (38-42); ABG PO2 64 mmHg (61-120)
--- NOTE | 2018-03-03 04:09 | XR ---
EXAM DATE: 03/03/2018 3:52 AM EST AGE/SEX: 88 years / Female INDICATIONS: Congestion. CLINICAL DATA: This is the patient's subsequent encounter. Patient reports that signs and symptoms h ave been present for 2 days and indicates a pain score of Nonresponsive. MEDICAL/SURGICAL HISTORY: Hypertension. None. COMPARISON: [facility] [place], CHEST 1V SINGLE AP, 03/01/2018. . FINDINGS: Modest worsening perihilar and basilar consolidation on the left. No large effusion demonstrated. No pneumothorax. Mild cardiomegaly is stable. There is a new nasogastric tube that courses into the stomach, tip not included on the study. CONCLUSION: Slight worsening left perihilar and basilar consolidation. New nasogastric tube. Electronically signed by: Delfino Matamoros MD Board Certified Radiologist 03/03/2018 4:07 AM EST
[2018-03-03] MEDS: Sod Chloride 0.9% Inj 1,000 ML IV.CONT SCH (08:03)
[2018-03-03] MEDS: Metoprolol Tartrate 25 MG Tablet NG/OG SCH ×2 (08:05→19:59)
[2018-03-03] MEDS: Aspirin 325 MG Tablet NG/OG SCH (08:05)
[2018-03-03] MEDS: Senna/Docusate Sodium 8.6/50 MG Tablet PO SCH ×2 (08:05→20:00)
[2018-03-03] MEDS: Insulin NovoLOG Aspart Correctional Sugar Inj SQ SCH ×4 (08:13→22:28)
--- NOTE | 2018-03-03 08:16 | P.PNIM ---
Subjective Interval history: F/U CVA. Today she is less responsive receiving simple mask. I am concerned about her airway family at bedside undecided about intubation. Discussed with RN, respiratory therapy regarding pulmonary toilet. Also discussed with lending manager patient may need intubation if family consents Physical Exam Vital signs: Last Vital Signs Temp 96.8 F L 03/03/18 06:00 Pulse 74 03/03/18 06:00 Resp 32 H 03/03/18 06:00 BP 164/69 H 03/03/18 06:00 Pulse Ox 94 L 03/03/18 07:56 Intake & Output 03/01/18 03/02/18 03/03/18 03/04/18 06:59 06:59 06:59 06:59 Intake Total 1300 / 1300 2225 / 2225 Output Total 1850 / 1850 175 / 175 Balance -550 / -550 2049 Weight 64.6 kg 63 kg Narrative: GENERAL: Well-nourished well-developed on simple mass SKIN: Warm and dry. CARDIOVASCULAR: Irregularly irregular RESPIRATORY: No accessory muscle use. Clear to auscultation. Breath sounds equal bilaterally. GASTROINTESTINAL: Abdomen soft, non-tender, nondistended. MUSCULOSKELETAL: Extremities without clubbing, cyanosis left lower extremity pitting edema. No obvious deformities. NEUROLOGICAL: Lethargic withdraws with painful stimuli obvious right facial droop, right upper and left lower extremity weakness Urinary Catheter Management Indwelling Urethral Catheter: Cath placed during this visit: yes, but has since been removed by the nurse Urethral indwelling: No Insertion date: 03/01/18 Removal date: 03/02/18 Removal time: 14:04 Results Labs CBC & Chem 7: 03/01/18 07:50 03/02/18 03:19 Labs: Microbiology 03/01/18 08:15 Catheterized Urine Urine Culture - Preliminary gram negative rods Imaging Imaging: ITS Impressions Head CT 03/01/18 07:50 CONCLUSION: 1. Mild cerebral atrophy. 2. 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 3. No acute infarct, acute hemorrhage, midline shift or extra-axial fluid collections. . Head CTA 03/01/18 08:16 CONCLUSION: Totally occluded left internal carotid artery with very tenuous intracranial flow reconstitution of the anterior circulation vessels on the left Neck CTA 03/01/18 08:16 CONCLUSION: 1. 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 Head MRI 03/01/18 08:17 CONCLUSION: 1. Evidence of a large area of signal abnormality involving almost the entire left parietal lobe as well as patchy areas within the left basal ganglia and left temporal lobe consistent with acute/subacute infarct in the left middle cerebral artery distribution. 2. Tiny focal areas of signal abnormality are also noted involving the right occipital cortex on the diffusion-weighted images suggesting small acute/ subacute cortical infarcts within the right posterior cerebral artery distribution. 3. No flow-void is identified within the left internal cerebral artery and visualized portion of the left middle cerebral artery. 4. No acute hemorrhage, midline shift or extra-axial bleed. 5. 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 6. Diffuse cerebral atrophy. Chest X-Ray 03/03/18 00:00 CONCLUSION: Slight worsening left perihilar and basilar consolidation. New nasogastric tube. Procedures Procedures: none Assessment and Plan Plan This is a elderly female was found unresponsive by her neighbor. She was sitting on the chair. She has right facial droop and right sided weakness. She was last seen normal yesterday morning. Discussed with her neighbor and son , she has history of hypertension and chronic left lower extremity lymphedema. No previous surgeries. She does not smoke and occasionally drinks. She takes Norvasc, Lasix and potassium. 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 Clinically worse less responsive. I am concerned about her airway family at bedside undecided about intubation. Discussed with RN, respiratory therapy regarding pulmonary toilet. Also discussed with lending manager patient may need intubation if family consents. Echocardiogram with EF of 60%. LDL [address] Lipitor. Continue aspirin discussed with neurology start anticoagulation in the next few days if patient stable rpt HCT in 2-3 days. Consult dietitian for tube feeding. Continue PT, OT and ST f/u rehab MD consult New-onset A. fib. TSH therapeutic. Patient with controlled ventricular response on Lopressor, wean Cardizem drip to keep heart rate less than 100. GNR UTI. Currently normothermic on Rocephin Follow-up urine culture Hypoxia. Pulmonary toilet, nebulization and oxygen as needed. DVT prophylaxis with SCD and early ambulation. Pharmacological prophylaxis per neurology. Progress Note: Quality VTE Deep Vein Thrombosis/Pulmonary Embolism Present on Admission: No
[2018-03-03] MEDS: Lansoprazole ODT 15 MG Tablet NG/OG SCH (09:53)
[2018-03-03 11:02] LABS: Baso % (Auto) 0.1 % (0.0-2.0); Hematocrit 38.3 % (35.0-46.0); Hemoglobin 12.7 gm/dL (11.6-15.3); Lymph # (Auto) 0.5 th/mm3 (1.0-4.8); Lymph % (Auto) 3.3 % (9.0-44.0); Mean Corpuscular HGB Conc 33.3 % (32.0-36.0); Mean Corpuscular Hemoglobin 33.7 pg (27.0-34.0); Mean Corpuscular Volume 101.1 fL (80.0-100.0); Mean Platelet Volume 8.9 fL (7.0-11.0); Mono # (Auto) 1.3 th/mm3 (0.0-0.9); Mono % (Auto) 8.2 % (0.0-8.0); Neut # (Auto) 13.7 th/mm3 (1.8-7.7); Neut % (Auto) 88.4 % (16.0-70.0); Platelet Count 219 th/mm3 (150-450); Red Blood Count 3.79 mil/mm3 (4.00-5.30); Red Cell Distribution Width 13.9 % (11.6-17.2); White Blood Count 15.6 th/mm3 (4.0-11.0)
[2018-03-03 11:34] LABS: Calcium 8.6 mg/dL (8.5-10.1); Carbon Dioxide 23.3 meq/L (21.0-32.0); Magnesium 2.2 mg/dL (1.5-2.5); Potassium 3.8 meq/L (3.5-5.1)
--- NOTE | 2018-03-03 11:58 | P.DIET ---
Nutritional Evaluation Type of nutrition evaluation: initial Nutrition consult regarding: Tube Feeding Nutrition screening: [facility] [place] (03/03 TFing) Objective - Diagnosis Acute Ischemic CVA - Objective % IBW: 107 (IBW = 130#) Body Weight Used for Calculations: Actual (63 kg) Energy Needs - Lower Range (kCal/kg): 25 Energy Needs - Upper Range (kCal/kg): 30 Lower Limit kCal/kg (kCals): 1,575 Upper Limit kCal/kg (kCals): 1,890 Lower Limit Protein Factor (Grams per Kg): 1.0 Upper Limit Protein Factor (Grams per Kg): 1.5 Lower Protein Needs (Protein): 63 Upper Protein Needs (Protein): 95 Dietitian Reviewed in Medical Record: Curent medications, Intake & Output, Labs , Medical history Diet Order: NPO Objective Comments: HgA1c pending Assessment Assessment: Pt admitted with CVA and needs TFing to meet nutritional needs. To meet needs with TFing, recommend Jevity 1.5 @ 45 mls/hr to provide 1620 kcals, 69 gms protein and 821 mls of free water. RD following. Recommendations: Jevity 1.5 @ 45 mls/hr goal Dietitian to Monitor: Lab values, Intake & Output, Tube feeding tolerance, Weight change, Medical course
[2018-03-03 12:30] LABS: Hemoglobin A1c 5.1 % (4.3-6.0)
--- NOTE | 2018-03-03 14:20 | HM ---
Date Performed: 03/01/2018 Time Performed: 14:47:00 HOOKUP DATE: 03/01/18 02:47:00 PM Fri ANALYSIS START TIME: 03/01/2018 2:52:00 PM ANALYSIS END TIME: 03/02/2018 1:57:27 PM PATIENT AGE: 88 PATIENT HEIGHT PATIENT WEIGHT DRUG LIST PATIENT DIAGNOSIS: cva TEST NARRATIVE: The patient's average heart rate was 88 BPM. Heart rates greater than 120 B PM were noted 10% of the time. No episodes of bradycardia were noted. No pauses exceeding 2.0 se conds were noted. 17449 ventricular ectopics, which represented 12% of the total beat count, were noted. The highest ventricular ectopic frequency occurred from 05:00 PM to 06:00 PM Fri. During th is time 1178 VE(s) occurred. [place] [address] isolated beat(s), as 728 co uplet(s) and as 83 run(s). Some of the ventricular beats occurred in bigeminal cycles. No suprav entricular ectopics were noted. Multiple episodes of ST depression (defined as -1.0 mm or more) were noted in channel 1. The maximum depression of -4.8 mm occurred at 04:16:50 PM Fri. Multiple ep isodes of ST depression (defined as -1.0 mm or more) were noted in channel 2. The maximum depressio n of -3.2 mm occurred at 04:16:49 PM Fri. In channel 3, a single episode of ST depression (defined a s -1.0 mm or more) occurred at 04:16:49 PM Fri with a maximum depression of -3.0 mm. TEST INTERPRETATION: Abnormal Holter monitor. The underlying rhythm appears to be atrial fibril lation occasionally with a rapid ventricular response. 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 Signed by : Thierno Dawson
--- NOTE | 2018-03-03 17:34 | P.PNNEU ---
Subjective Subjective Comments: no new c/o Active Medications: Active Medications Al Hydroxide/Mg Hydroxide (Milk Of Magnmarilin Liq) 30 ml PO Q12H PRN PRN Reason: Mild Constipation Albuterol (Albuterol Neb (Prn)) 2.5 mg NEB Q2HR NEB PRN PRN Reason: DYSPNEA Last Admin: 03/03/18 17:13 Dose: 2.5 mg Albuterol (Albuterol Neb (Bigg)) 2.5 mg NEB Q8HR NEB BIGG Last Admin: 03/03/18 15:28 Dose: 2.5 mg Aspirin (Aspirin) 325 mg NG/OG DAILY [facility] Last Admin: 03/03/18 08:05 Dose: 325 mg Atorvastatin Calcium (Lipitor) 20 mg NG/OG HS [facility] Last Admin: 03/02/18 20:49 Dose: 20 mg Bisacodyl (Dulcolax Supp) 10 mg RECTAL DAILY PRN PRN Reason: SEVERE CONSITIPATION Dextrose (D50w Vial) 50 ml IV.PUSH UNSCH PRN PRN Reason: PER HYPOGLYCEMIA PROTOCOL Glucagon (Glucagon Inj) 1 mg OTHER UNSCH PRN PRN Reason: for Hypoglycemia Protocol Hyoscyamine (Levsin) 0.125 mg NG/OG Q4H [facility] Last Admin: 03/03/18 14:28 Dose: 0.125 mg Sodium Chloride (Ns Inj) 1,000 mls @ 50 mls/hr IV.CONT .Q20H [facility] Last Admin: 03/03/18 08:03 Dose: 70 mls/hr Diltiazem HCl 125 mg/ Sodium (Chloride) 125 mls @ 5 mls/hr IV.CONT TITRATE PRN ; Protocol PRN Reason: Per Protocol Last Admin: 03/03/18 11:36 Dose: 10 mg/hr, 10 mls/hr Ceftriaxone Sodium 1,000 mg/ (Sodium Chloride) 100 mls @ 200 mls/hr IV.SIG Q24H [facility] Last Admin: 03/03/18 13:29 Dose: 200 mls/hr Phenylephrine HCl 40 mg/ (Sodium Chloride) 500 mls @ 30 mls/hr IV.CONT TITRATE PRN; Protocol PRN Reason: Per Protocol Insulin Aspart (Novolog Insulin Correctional Sugar Inj) 0 unit SQ ACHS [facility]; Protocol Last Admin: 03/03/18 13:29 Dose: Not Given Labetalol HCl (Trandate Inj) 10 mg IV.PUSH Q2H PRN PRN Reason: For SBP > 220 or DBP > 120 Lactulose (Lactulose Liq) 30 ml PO DAILY PRN PRN Reason: SEVERE CONSITIPATION Lansoprazole (Prevacid Solutab) 15 mg NG/OG DAILY [facility] Last Admin: 03/03/18 09:53 Dose: 15 mg Metoprolol Tartrate (Lopressor) 25 mg NG/OG BID [facility] Last Admin: 03/03/18 08:05 Dose: 25 mg Senna/Docusate Sodium (Denisha-Colace) 1 tab PO BID [facility] Last Admin: 03/03/18 08:05 Dose: 1 tab Sennosides (Senokot) 17.2 mg PO Q12H PRN PRN Reason: Moderate Constipation Sodium Chloride (Ns Flush) 2 ml IV.FLUSH BID [facility] Last Admin: 03/03/18 08:06 Dose: 2 ml Sodium Chloride (Ns Flush) 2 ml IV.FLUSH PRN PRN PRN Reason: FLUSH AFTER USING IV ACCESS Terbutaline Sulfate (Brethine Inj) 1 mg SQ UNSCH PRN PRN Reason: For Extravasation Allergies/Adverse Reactions: Allergies Allergy/AdvReac Type Severity Reaction Status Date / Time losartan AdvReac Rash Verified 03/01/18 13:17 procaine AdvReac Hives Verified 03/01/18 13:17 Physical Exam Vital signs: Vital Signs 03/02/18 17:39 03/02/18 17:46 03/02/18 18:00 Temperature 99.1 F 99.1 F 99.1 F Pulse Rate 92 H 87 87 Respiratory Rate 24 23 28 H Blood Pressure 188/76 H 149/93 H 170/75 H Pulse Oximetry 94 L 93 L 82 L 03/02/18 18:30 03/02/18 19:00 03/02/18 19:30 Temperature 99.3 F 99.3 F 99.5 F Pulse Rate 93 H 102 H 93 H Respiratory Rate 26 H 27 H 28 H Blood Pressure 162/82 H 176/90 H 167/77 H Pulse Oximetry 97 98 99 03/02/18 20:00 03/02/18 20:04 03/02/18 20:30 Temperature 99.5 F 99.5 F Pulse Rate 88 94 H Respiratory Rate 25 H 25 H Blood Pressure 171/78 H 167/77 H Pulse Oximetry 98 96 98 03/02/18 21:00 03/02/18 21:34 03/02/18 22:00 Temperature 99.3 F 99.3 F 99.1 F Pulse Rate 92 H 77 90 Respiratory Rate 28 H 24 32 H Blood Pressure 171/74 H 131/94 H 158/73 H Pulse Oximetry 97 95 92 L 03/02/18 22:30 03/02/18 22:43 03/02/18 23:00 Temperature 99.0 F 99.0 F 98.8 F Pulse Rate 79 78 81 Respiratory Rate 31 H 26 H 24 Blood Pressure 172/114 H 157/68 H 159/67 H Pulse Oximetry 96 97 97 03/02/18 23:30 03/03/18 00:00 03/03/18 00:30 Temperature 98.6 F 98.4 F 98.4 F Pulse Rate 82 80 77 Respiratory Rate 25 H 22 21 Blood Pressure 159/89 H 162/71 H 149/65 H Pulse Oximetry 98 98 98 03/03/18 01:00 03/03/18 01:30 03/03/18 02:00 Temperature 98.2 F 98.1 F 97.7 F Pulse Rate 79 87 74 Respiratory Rate 43 H 38 H 42 H Blood Pressure 140/71 150/78 H 173/72 H Pulse Oximetry 98 98 99 03/03/18 02:30 03/03/18 03:00 03/03/18 03:30 Temperature 97.3 F L 97.0 F L 96.3 F L Pulse Rate 72 76 72 Respiratory Rate 43 H 40 H 19 Blood Pressure 177/78 H 163/77 H 140/63 Pulse Oximetry 99 99 96 03/03/18 04:00 03/03/18 04:30 03/03/18 05:00 Temperature 96.8 F L 96.4 F L 96.3 F L Pulse Rate 74 77 76 Respiratory Rate 22 24 21 Blood Pressure 139/83 158/66 H 132/65 Pulse Oximetry 96 92 L 97 03/03/18 05:30 03/03/18 06:00 03/03/18 06:30 Temperature 96.4 F L 96.8 F L Pulse Rate 74 74 82 Respiratory Rate 39 H 32 H 25 H Blood Pressure 145/66 H 164/69 H 158/71 H Pulse Oximetry 98 97 92 L 03/03/18 07:00 03/03/18 07:30 03/03/18 07:56 Temperature 98.7 F Pulse Rate 94 H 96 H Respiratory Rate 24 25 H Blood Pressure 157/70 H 159/80 H Pulse Oximetry 92 L 93 L 94 L 03/03/18 08:00 03/03/18 08:30 03/03/18 09:00 Temperature 98.4 F Pulse Rate 93 H 85 85 Respiratory Rate 26 H 49 H 50 H Blood Pressure 153/80 H 159/69 H 153/67 H Pulse Oximetry 94 L 96 94 L 03/03/18 09:30 03/03/18 10:00 03/03/18 10:30 Temperature Pulse Rate 87 81 80 Respiratory Rate 50 H 26 H 36 H Blood Pressure 161/74 H 153/63 H 147/64 H Pulse Oximetry 94 L 97 97 03/03/18 11:00 03/03/18 11:30 03/03/18 12:00 Temperature Pulse Rate 86 84 79 Respiratory Rate 34 H 36 H 44 H Blood Pressure 152/69 H 139/66 154/66 H Pulse Oximetry 97 97 97 03/03/18 12:30 03/03/18 13:00 03/03/18 13:30 Temperature Pulse Rate 84 81 82 Respiratory Rate 25 H 53 H 42 H Blood Pressure 146/69 H 161/74 H 150/65 H Pulse Oximetry 96 97 97 03/03/18 14:00 03/03/18 14:30 03/03/18 15:00 Temperature Pulse Rate 86 80 90 Respiratory Rate 37 H 44 H 48 H Blood Pressure 140/63 168/69 H 150/80 H Pulse Oximetry 97 96 96 03/03/18 15:30 03/03/18 15:31 03/03/18 16:00 Temperature 98.7 F Pulse Rate 94 H 93 H 99 H Respiratory Rate 58 H 16 53 H Blood Pressure 155/67 H 161/73 H Pulse Oximetry 96 97 03/03/18 17:12 Temperature Pulse Rate 89 Respiratory Rate 20 Blood Pressure Pulse Oximetry Intake & Output 03/02/18 03/03/18 03/03/18 18:59 06:59 18:59 Intake Total 1100 / 1100 1125 / 1125 125 / 125 Output Total 175 / 175 Balance 925 / 925 1125 / 1125 125 / 125 Weight 63 kg Intake: IV 1100 / 1100 1125 / 1125 125 / 125 NS Inj 1,000 ML @ 70 mls/hr IV. 1000 / 1000 1000 / 1000 CONT .[id number] [facility] Rx#:[id number] Cardizem Inj 125 MG In NS Inj 125 / 125 125 / 125 100 ML @ 5 MG/HR 5 mls/hr IV. CONT TITRATE PRN Rx#:[id number] Rocephin Inj 1,000 MG In NS Inj 100 / 100 100 ML @ 200 mls/hr IV.SIG Q24H [facility] Rx#:[id number] Oral 0 / 0 Output: Urine Amount (Catheter) 175 / 175 Indwelling Urethral Catheter 175 / 175 Other: # Urine Diapers 1 1 - Routine Neurological Exam lethargic, aphasia without change MOTOR--right weak without change - Urinary Catheter Management Indwelling Urethral Catheter Cath placed during this visit: yes, but has since been removed by the nurse Urethral indwelling: No Reason for continuing: Decision to DC catheter Insertion date: 03/01/18 Removal date: 03/02/18 Removal time: 14:04 Objective Laboratory Results - last 24 hr 03/02/18 03/02/18 03/03/18 03:19 20:47 03:31 WBC RBC Hgb Hct MCV MCH MCHC RDW Plt Count MPV Neut % (Auto) Lymph % (Auto) [place] % (Auto) Eos % (Auto) Baso % (Auto) Neut # (Auto) Lymph # (Auto) [place] # (Auto) Eos # (Auto) Baso # (Auto) WBC Differential Differential Comment Puncture Site Left brachial Patient Temperature 98.6 O2 Saturation 90 ABG pH 7.41 ABG pCO2 33 L ABG pO2 64 ABG HCO3 21 L ABG O2 Content 15.7 ABG Base Excess -3.1 L ABG Methemoglobin 1.0 Wolf Test Present Hemoglobin 12.5 Carboxyhemoglobin 1.2 O2 Delivery Device Sm Liter Flow 10.00 Critical Value No Sodium Potassium Chloride Carbon Dioxide Anion Gap BUN Creatinine Estimated GFR POC Glucose 113 H Random Glucose Hemoglobin A1c 5.1 Calcium Magnesium B-Natriuretic Peptide 03/03/18 03/03/18 03/03/18 08:13 10:46 10:46 WBC 15.6 H RBC 3.79 L Hgb 12.7 Hct 38.3 MCV 101.1 H MCH 33.7 MCHC 33.3 RDW 13.9 Plt Count 219 MPV 8.9 Neut % (Auto) 88.4 H Lymph % (Auto) 3.3 L [place] % (Auto) 8.2 H Eos % (Auto) 0.0 Baso % (Auto) 0.1 Neut # (Auto) 13.7 H Lymph # (Auto) 0.5 L [place] # (Auto) 1.3 H Eos # (Auto) 0.0 Baso # (Auto) 0.0 WBC Differential . Differential Comment Auto diff final Puncture Site Patient Temperature O2 Saturation ABG pH ABG pCO2 ABG pO2 ABG HCO3 ABG O2 Content ABG Base Excess ABG Methemoglobin Wolf Test Hemoglobin Carboxyhemoglobin O2 Delivery Device Liter Flow Critical Value Sodium 145 Potassium 3.8 Chloride 113 H Carbon Dioxide 23.3 Anion Gap 9 BUN 22 H Creatinine 0.94 Estimated GFR 56 L POC Glucose 120 H Random Glucose 126 H Hemoglobin A1c Calcium 8.6 Magnesium 2.2 B-Natriuretic Peptide 03/03/18 03/03/18 03/03/18 10:46 12:59 17:20 WBC RBC Hgb Hct MCV MCH MCHC RDW Plt Count MPV Neut % (Auto) Lymph % (Auto) [place] % (Auto) Eos % (Auto) Baso % (Auto) Neut # (Auto) Lymph # (Auto) [place] # (Auto) Eos # (Auto) Baso # (Auto) WBC Differential Differential Comment Puncture Site Patient Temperature O2 Saturation ABG pH ABG pCO2 ABG pO2 ABG HCO3 ABG O2 Content ABG Base Excess ABG Methemoglobin Wolf Test Hemoglobin Carboxyhemoglobin O2 Delivery Device Liter Flow Critical Value Sodium Potassium Chloride Carbon Dioxide Anion Gap BUN Creatinine Estimated GFR POC Glucose 136 H 103 Random Glucose Hemoglobin A1c Calcium Magnesium B-Natriuretic Peptide 615 H Microbiology 03/01/18 08:15 Urine Culture - Final Catheterized Urine Escherichia coli Review/Management - Review/Management Plan: continue asa. follow up echo repeat CT next 2-3 days
[2018-03-04] MEDS: dilTIAZem Inj 125 MG in Sodium Chlor 0.9% Inj 100 ML IV.CONT PRN (02:15)
[2018-03-04] MEDS: Sod Chloride 0.9% Inj 1,000 ML IV.CONT SCH ×2 (08:13→14:02)
--- NOTE | 2018-03-04 08:18 | P.PNNEU ---
Subjective Subjective Comments: no new c/o Active Medications: Active Medications Al Hydroxide/Mg Hydroxide (Milk Of Magnmarilin Liq) 30 ml PO Q12H PRN PRN Reason: Mild Constipation Albuterol (Albuterol Neb (Prn)) 2.5 mg NEB Q2HR NEB PRN PRN Reason: DYSPNEA Last Admin: 03/03/18 17:13 Dose: 2.5 mg Albuterol (Albuterol Neb (Gomez)) 2.5 mg NEB Q8HR NEB [facility] Last Admin: 03/04/18 00:34 Dose: 2.5 mg Aspirin (Aspirin) 325 mg NG/OG DAILY [facility] Last Admin: 03/03/18 08:05 Dose: 325 mg Atorvastatin Calcium (Lipitor) 20 mg NG/OG HS [facility] Last Admin: 03/03/18 19:59 Dose: 20 mg Bisacodyl (Dulcolax Supp) 10 mg RECTAL DAILY PRN PRN Reason: SEVERE CONSITIPATION Dextrose (D50w Vial) 50 ml IV.PUSH UNSCH PRN PRN Reason: PER HYPOGLYCEMIA PROTOCOL Glucagon (Glucagon Inj) 1 mg OTHER UNSCH PRN PRN Reason: for Hypoglycemia Protocol Hyoscyamine (Levsin) 0.125 mg NG/OG Q4H [facility] Last Admin: 03/04/18 06:00 Dose: 0.125 mg Sodium Chloride (Ns Inj) 1,000 mls @ 50 mls/hr IV.CONT .Q20H [facility] Last Infusion: 03/04/18 08:13 Dose: 50 mls/hr Diltiazem HCl 125 mg/ Sodium (Chloride) 125 mls @ 5 mls/hr IV.CONT TITRATE PRN ; Protocol PRN Reason: Per Protocol Last Admin: 03/04/18 02:15 Dose: 10 mg/hr, 10 mls/hr Ceftriaxone Sodium 1,000 mg/ (Sodium Chloride) 100 mls @ 200 mls/hr IV.SIG Q24H [facility] Last Infusion: 03/03/18 14:00 Dose: Infused Phenylephrine HCl 40 mg/ (Sodium Chloride) 500 mls @ 30 mls/hr IV.CONT TITRATE PRN; Protocol PRN Reason: Per Protocol Insulin Aspart (Novolog Insulin Correctional Sugar Inj) 0 unit SQ ACHS [facility]; Protocol Last Admin: 03/03/18 22:28 Dose: Not Given Labetalol HCl (Trandate Inj) 10 mg IV.PUSH Q2H PRN PRN Reason: For SBP > 220 or DBP > 120 Lactulose (Lactulose Liq) 30 ml PO DAILY PRN PRN Reason: SEVERE CONSITIPATION Lansoprazole (Prevacid Solutab) 15 mg NG/OG DAILY [facility] Last Admin: 03/03/18 09:53 Dose: 15 mg Metoprolol Tartrate (Lopressor) 25 mg NG/OG BID [facility] Last Admin: 03/03/18 19:59 Dose: 25 mg Senna/Docusate Sodium (Denisha-Colace) 1 tab PO BID [facility] Last Admin: 03/03/18 20:00 Dose: 1 tab Sennosides (Senokot) 17.2 mg PO Q12H PRN PRN Reason: Moderate Constipation Sodium Chloride (Ns Flush) 2 ml IV.FLUSH BID [facility] Last Admin: 03/03/18 22:29 Dose: Not Given Sodium Chloride (Ns Flush) 2 ml IV.FLUSH PRN PRN PRN Reason: FLUSH AFTER USING IV ACCESS Terbutaline Sulfate (Brethine Inj) 1 mg SQ UNSCH PRN PRN Reason: For Extravasation Allergies/Adverse Reactions: Allergies Allergy/AdvReac Type Severity Reaction Status Date / Time losartan AdvReac Rash Verified 03/01/18 13:17 procaine AdvReac Hives Verified 03/01/18 13:17 Physical Exam Vital signs: Vital Signs 03/03/18 08:30 03/03/18 09:00 03/03/18 09:30 Temperature 98.4 F Pulse Rate 85 85 87 Respiratory Rate 49 H 50 H 50 H Blood Pressure 159/69 H 153/67 H 161/74 H Pulse Oximetry 96 94 L 94 L 03/03/18 10:00 03/03/18 10:30 03/03/18 11:00 Temperature Pulse Rate 81 80 86 Respiratory Rate 26 H 36 H 34 H Blood Pressure 153/63 H 147/64 H 152/69 H Pulse Oximetry 97 97 97 03/03/18 11:30 03/03/18 12:00 03/03/18 12:30 Temperature Pulse Rate 84 79 84 Respiratory Rate 36 H 44 H 25 H Blood Pressure 139/66 154/66 H 146/69 H Pulse Oximetry 97 97 96 03/03/18 13:00 03/03/18 13:30 03/03/18 14:00 Temperature Pulse Rate 81 82 86 Respiratory Rate 53 H 42 H 37 H Blood Pressure 161/74 H 150/65 H 140/63 Pulse Oximetry 97 97 97 03/03/18 14:30 03/03/18 15:00 03/03/18 15:30 Temperature Pulse Rate 80 90 94 H Respiratory Rate 44 H 48 H 58 H Blood Pressure 168/69 H 150/80 H 155/67 H Pulse Oximetry 96 96 96 03/03/18 15:31 03/03/18 16:00 03/03/18 16:30 Temperature 98.7 F Pulse Rate 93 H 99 H 98 H Respiratory Rate 16 53 H 72 H Blood Pressure 161/73 H 162/74 H Pulse Oximetry 97 98 03/03/18 17:00 03/03/18 17:12 03/03/18 17:30 Temperature 98.1 F Pulse Rate 100 H 89 98 H Respiratory Rate 32 H 20 30 H Blood Pressure 157/63 H 154/65 H Pulse Oximetry 99 99 03/03/18 18:00 03/03/18 19:00 03/03/18 19:30 Temperature Pulse Rate 94 H 94 H 98 H Respiratory Rate 48 H 31 H 40 H Blood Pressure 157/67 H 142/74 H 150/78 H Pulse Oximetry 98 100 100 03/03/18 20:00 03/03/18 20:30 03/03/18 20:42 Temperature 97.4 F L Pulse Rate 93 H 93 H Respiratory Rate 34 H 60 H Blood Pressure 151/70 H 148/72 H Pulse Oximetry 100 100 100 03/03/18 21:00 03/03/18 21:30 03/03/18 22:00 Temperature Pulse Rate 83 81 78 Respiratory Rate 25 H 22 24 Blood Pressure 154/63 H 139/65 135/66 Pulse Oximetry 100 100 100 03/03/18 22:30 03/03/18 23:00 03/03/18 23:30 Temperature Pulse Rate 76 71 74 Respiratory Rate 24 23 30 H Blood Pressure 147/65 H 136/76 150/66 H Pulse Oximetry 100 100 100 03/04/18 00:00 03/04/18 00:20 03/04/18 00:30 Temperature 97.3 F L Pulse Rate 69 65 75 Respiratory Rate 27 H 22 20 Blood Pressure 131/68 140/62 Pulse Oximetry 100 100 03/04/18 01:00 03/04/18 01:30 03/04/18 02:00 Temperature Pulse Rate 78 80 75 Respiratory Rate 21 21 22 Blood Pressure 141/65 H 156/75 H 142/64 H Pulse Oximetry 100 99 100 03/04/18 02:30 03/04/18 03:00 03/04/18 03:30 Temperature 97.3 F L Pulse Rate 76 80 82 Respiratory Rate 20 23 20 Blood Pressure 160/67 H 154/70 H 164/70 H Pulse Oximetry 100 100 100 03/04/18 04:00 03/04/18 04:30 03/04/18 05:00 Temperature Pulse Rate 82 76 79 Respiratory Rate 21 23 21 Blood Pressure 159/70 H 156/68 H 161/72 H Pulse Oximetry 100 100 100 03/04/18 05:30 03/04/18 06:00 03/04/18 06:30 Temperature Pulse Rate 76 85 86 Respiratory Rate 20 21 24 Blood Pressure 159/70 H 154/85 H 159/71 H Pulse Oximetry 99 99 100 03/04/18 07:00 03/04/18 07:30 Temperature Pulse Rate 79 77 Respiratory Rate 19 20 Blood Pressure 137/65 151/67 H Pulse Oximetry 98 96 Intake & Output 03/03/18 03/04/18 03/04/18 18:59 06:59 18:59 Intake Total 225 / 225 125 / 125 Balance 225 / 225 125 / 125 Weight 66.5 kg Intake: IV 225 / 225 125 / 125 Cardizem Inj 125 MG In NS Inj 125 / 125 125 / 125 100 ML @ 5 MG/HR 5 mls/hr IV. CONT TITRATE PRN Rx#:[id number] Rocephin Inj 1,000 MG In NS Inj 100 / 100 100 ML @ 200 mls/hr IV.SIG Q24H [facility] Rx#:[id number] Oral 0 / 0 Other: # Urine Diapers 1 - Detailed Neurological Exam: Coma Scale not responsive, does not follow commands CN---RUMN CN 7 palsey. PERRL MOTOR decreased tone RUE and RLE. Does not withdraw right. Does withdraw left upper and lower extremities - Urinary Catheter Management Indwelling Urethral Catheter Cath placed during this visit: yes, but has since been removed by the nurse Urethral indwelling: No Reason for continuing: Decision to DC catheter Insertion date: 03/01/18 Removal date: 03/02/18 Removal time: 14:04 Objective Laboratory Results - last 24 hr 03/02/18 03/03/18 03/03/18 03:19 10:46 10:46 WBC 15.6 H RBC 3.79 L Hgb 12.7 Hct 38.3 MCV 101.1 H MCH 33.7 MCHC 33.3 RDW 13.9 Plt Count 219 MPV 8.9 Neut % (Auto) 88.4 H Lymph % (Auto) 3.3 L [place] % (Auto) 8.2 H Eos % (Auto) 0.0 Baso % (Auto) 0.1 Neut # (Auto) 13.7 H Lymph # (Auto) 0.5 L Wirt # (Auto) 1.3 H Eos # (Auto) 0.0 Baso # (Auto) 0.0 WBC Differential . Differential Comment Auto diff final Sodium 145 Potassium 3.8 Chloride 113 H Carbon Dioxide 23.3 Anion Gap 9 BUN 22 H Creatinine 0.94 Estimated GFR 56 L POC Glucose Random Glucose 126 H Hemoglobin A1c 5.1 Calcium 8.6 Magnesium 2.2 B-Natriuretic Peptide 03/03/18 03/03/18 03/03/18 10:46 12:59 17:20 WBC RBC Hgb Hct MCV MCH MCHC RDW Plt Count MPV Neut % (Auto) Lymph % (Auto) [place] % (Auto) Eos % (Auto) Baso % (Auto) Neut # (Auto) Lymph # (Auto) [place] # (Auto) Eos # (Auto) Baso # (Auto) WBC Differential Differential Comment Sodium Potassium Chloride Carbon Dioxide Anion Gap BUN Creatinine Estimated GFR POC Glucose 136 H 103 Random Glucose Hemoglobin A1c Calcium Magnesium B-Natriuretic Peptide 615 H 03/03/18 03/04/18 20:09 06:14 WBC RBC Hgb Hct MCV MCH MCHC RDW Plt Count MPV Neut % (Auto) Lymph % (Auto) [place] % (Auto) Eos % (Auto) Baso % (Auto) Neut # (Auto) Lymph # (Auto) [place] # (Auto) Eos # (Auto) Baso # (Auto) WBC Differential Differential Comment Sodium Potassium Chloride Carbon Dioxide Anion Gap BUN Creatinine Estimated GFR POC Glucose 112 H 105 Random Glucose Hemoglobin A1c Calcium Magnesium B-Natriuretic Peptide Microbiology 03/01/18 08:15 Urine Culture - Final Catheterized Urine Escherichia coli Review/Management - Review/Management Plan: continue asa. follow up echo repeat CT today prognosis poor. I dicsussed with her family
[2018-03-04] MEDS: Aspirin 325 MG Tablet NG/OG SCH (09:59)
[2018-03-04] MEDS: Lansoprazole ODT 15 MG Tablet NG/OG SCH (09:59)
[2018-03-04] MEDS: Senna/Docusate Sodium 8.6/50 MG Tablet PO SCH (10:00)
[2018-03-04] MEDS: Insulin NovoLOG Aspart Correctional Sugar Inj SQ SCH ×2 (10:00→11:40)
[2018-03-04] MEDS: Metoprolol Tartrate 25 MG Tablet NG/OG SCH (10:00)
--- NOTE | 2018-03-04 11:22 | P.PNIM ---
Subjective Interval history: Chief Complaint: Found unresponsive History of Present Illness: Edda is an elderly female who was found unresponsive by her neighbor. She was sitting on the chair. She has right facial droop and right sided weakness. She was last seen normal yesterday morning. Discussed with her neighbor and son, she has history of hypertension and chronic left lower extremity lymphedema. No previous surgeries. She does not smoke and occasionally drinks. She takes Norvasc, Lasix and potassium. 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 EKG interpreted by me with atrial fibrillation with bigeminy. All other systems reviewed negative 03-02 Follow-up CVA. Remains lethargic awakens and withdraws from pain seen with neighbors 03-03 F/U CVA. Today she is less responsive receiving simple mask. I am concerned about her airway family at bedside undecided about intubation. Discussed with RN, respiratory therapy regarding pulmonary toilet. Also discussed with crystal finisher patient may need intubation if family consents 03-04 FAMILY WANTS HOSPICE PALLIATIVE CARE ON BOARD WILL TRANSFER TO INPATIENT HOSPICE TODAY WILL DO PAPERWORK REMAINS NONVERBAL SEEN BY DR JAFFE WHO RECOMMENDS HOSPICE FAMILY AGREES Physical Exam Vital signs: Vital Signs 03/03/18 11:30 03/03/18 12:00 03/03/18 12:30 Temperature Pulse Rate 84 79 84 Respiratory Rate 36 H 44 H 25 H Blood Pressure 139/66 154/66 H 146/69 H Pulse Oximetry 97 97 96 03/03/18 13:00 03/03/18 13:30 03/03/18 14:00 Temperature Pulse Rate 81 82 86 Respiratory Rate 53 H 42 H 37 H Blood Pressure 161/74 H 150/65 H 140/63 Pulse Oximetry 97 97 97 03/03/18 14:30 03/03/18 15:00 03/03/18 15:30 Temperature Pulse Rate 80 90 94 H Respiratory Rate 44 H 48 H 58 H Blood Pressure 168/69 H 150/80 H 155/67 H Pulse Oximetry 96 96 96 03/03/18 15:31 03/03/18 16:00 03/03/18 16:30 Temperature 98.7 F Pulse Rate 93 H 99 H 98 H Respiratory Rate 16 53 H 72 H Blood Pressure 161/73 H 162/74 H Pulse Oximetry 97 98 03/03/18 17:00 03/03/18 17:12 03/03/18 17:30 Temperature 98.1 F Pulse Rate 100 H 89 98 H Respiratory Rate 32 H 20 30 H Blood Pressure 157/63 H 154/65 H Pulse Oximetry 99 99 03/03/18 18:00 03/03/18 19:00 03/03/18 19:30 Temperature Pulse Rate 94 H 94 H 98 H Respiratory Rate 48 H 31 H 40 H Blood Pressure 157/67 H 142/74 H 150/78 H Pulse Oximetry 98 100 100 03/03/18 20:00 03/03/18 20:30 03/03/18 20:42 Temperature 97.4 F L Pulse Rate 93 H 93 H Respiratory Rate 34 H 60 H Blood Pressure 151/70 H 148/72 H Pulse Oximetry 100 100 100 03/03/18 21:00 03/03/18 21:30 03/03/18 22:00 Temperature Pulse Rate 83 81 78 Respiratory Rate 25 H 22 24 Blood Pressure 154/63 H 139/65 135/66 Pulse Oximetry 100 100 100 03/03/18 22:30 03/03/18 23:00 03/03/18 23:30 Temperature Pulse Rate 76 71 74 Respiratory Rate 24 23 30 H Blood Pressure 147/65 H 136/76 150/66 H Pulse Oximetry 100 100 100 03/04/18 00:00 03/04/18 00:20 03/04/18 00:30 Temperature 97.3 F L Pulse Rate 69 65 75 Respiratory Rate 27 H 22 20 Blood Pressure 131/68 140/62 Pulse Oximetry 100 100 03/04/18 01:00 03/04/18 01:30 03/04/18 02:00 Temperature Pulse Rate 78 80 75 Respiratory Rate 21 21 22 Blood Pressure 141/65 H 156/75 H 142/64 H Pulse Oximetry 100 99 100 03/04/18 02:30 03/04/18 03:00 03/04/18 03:30 Temperature 97.3 F L Pulse Rate 76 80 82 Respiratory Rate 20 23 20 Blood Pressure 160/67 H 154/70 H 164/70 H Pulse Oximetry 100 100 100 03/04/18 04:00 03/04/18 04:30 03/04/18 05:00 Temperature Pulse Rate 82 76 79 Respiratory Rate 21 23 21 Blood Pressure 159/70 H 156/68 H 161/72 H Pulse Oximetry 100 100 100 03/04/18 05:30 03/04/18 06:00 03/04/18 06:30 Temperature Pulse Rate 76 85 86 Respiratory Rate 20 21 24 Blood Pressure 159/70 H 154/85 H 159/71 H Pulse Oximetry 99 99 100 03/04/18 07:00 03/04/18 07:30 03/04/18 07:45 Temperature Pulse Rate 79 77 78 Respiratory Rate 19 20 24 Blood Pressure 137/65 151/67 H Pulse Oximetry 98 96 98 03/04/18 08:00 03/04/18 08:15 03/04/18 08:30 Temperature 97.5 F L Pulse Rate 78 76 82 Respiratory Rate 24 21 20 Blood Pressure 145/67 H 146/62 H Pulse Oximetry 95 93 L 93 L 03/04/18 08:45 03/04/18 09:00 03/04/18 09:10 Temperature Pulse Rate 73 79 76 Respiratory Rate 22 22 22 Blood Pressure 146/65 H Pulse Oximetry 93 L 93 L 93 L 03/04/18 09:15 03/04/18 09:30 03/04/18 09:45 Temperature Pulse Rate 77 76 74 Respiratory Rate 21 23 21 Blood Pressure 154/67 H Pulse Oximetry 94 L 94 L 95 03/04/18 10:00 03/04/18 10:15 Temperature Pulse Rate 76 77 Respiratory Rate 22 24 Blood Pressure 144/66 H Pulse Oximetry 94 L 93 L Intake & Output 03/03/18 03/04/18 03/04/18 18:59 06:59 18:59 Intake Total 225 / 225 125 / 125 Balance 225 / 225 125 / 125 Weight 66.5 kg Intake: IV 225 / 225 125 / 125 Cardizem Inj 125 MG In NS Inj 125 / 125 125 / 125 100 ML @ 5 MG/HR 5 mls/hr IV. CONT TITRATE PRN Rx#:[id number] Rocephin Inj 1,000 MG In NS Inj 100 / 100 100 ML @ 200 mls/hr IV.SIG Q24H GOMEZ Rx#:[id number] Oral 0 / 0 Other: # Urine Diapers 1 Narrative: GENERAL: Well-nourished well-developed on simple mass SKIN: Warm and dry. CARDIOVASCULAR: Irregularly irregular RESPIRATORY: No accessory muscle use. Clear to auscultation. Breath sounds equal bilaterally. GASTROINTESTINAL: Abdomen soft, non-tender, nondistended. MUSCULOSKELETAL: Extremities without clubbing, cyanosis left lower extremity pitting edema. No obvious deformities. NEUROLOGICAL: Lethargic withdraws with painful stimuli obvious right facial droop, right upper and left lower extremity weakness - Urinary Catheter Management Indwelling Urethral Catheter Cath placed during this visit: yes, but has since been removed by the nurse Urethral indwelling: No Reason for continuing: Decision to DC catheter Insertion date: 03/01/18 Removal date: 03/02/18 Removal time: 14:04 Results - Labs CBC & Chem 7: 03/03/18 10:46 03/03/18 10:46 Laboratory Results - last 24 hr 03/02/18 03/03/18 03/03/18 03:19 10:46 10:46 Sodium 145 Potassium 3.8 Chloride 113 H Carbon Dioxide 23.3 Anion Gap 9 BUN 22 H Creatinine 0.94 Estimated GFR 56 L POC Glucose Random Glucose 126 H Hemoglobin A1c 5.1 Calcium 8.6 Magnesium 2.2 B-Natriuretic Peptide 615 H 03/03/18 03/03/18 03/03/18 12:59 17:20 20:09 Sodium Potassium Chloride Carbon Dioxide Anion Gap BUN Creatinine Estimated GFR POC Glucose 136 H 103 112 H Random Glucose Hemoglobin A1c Calcium Magnesium B-Natriuretic Peptide 03/04/18 06:14 Sodium Potassium Chloride Carbon Dioxide Anion Gap BUN Creatinine Estimated GFR POC Glucose 105 Random Glucose Hemoglobin A1c Calcium Magnesium B-Natriuretic Peptide Microbiology 03/01/18 08:15 Catheterized Urine Urine Culture - Final Escherichia coli - Imaging Chest X-Ray 03/01/18 07:50 CONCLUSION: 1. Cardiomegaly. 2. No focal infiltrate or pulmonary vascular congestion. Head CT 03/01/18 07:50 CONCLUSION: 1. Mild cerebral atrophy. 2. 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 3. No acute infarct, acute hemorrhage, midline shift or extra-axial fluid collections. . Head CTA 03/01/18 08:16 CONCLUSION: Totally occluded left internal carotid artery with very tenuous intracranial flow reconstitution of the anterior circulation vessels on the left Neck CTA 03/01/18 08:16 CONCLUSION: 1. 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 Head MRI 03/01/18 08:17 CONCLUSION: 1. Evidence of a large area of signal abnormality involving almost the entire left parietal lobe as well as patchy areas within the left basal ganglia and left temporal lobe consistent with acute/subacute infarct in the left middle cerebral artery distribution. 2. Tiny focal areas of signal abnormality are also noted involving the right occipital cortex on the diffusion-weighted images suggesting small acute/ subacute cortical infarcts within the right posterior cerebral artery distribution. 3. No flow-void is identified within the left internal cerebral artery and visualized portion of the left middle cerebral artery. 4. No acute hemorrhage, midline shift or extra-axial bleed. 5. 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 6. Diffuse cerebral atrophy. Chest X-Ray 03/03/18 00:00 CONCLUSION: Slight worsening left perihilar and basilar consolidation. New nasogastric tube. - Procedures none Assessment and Plan - Plan This is a elderly female was found unresponsive by her neighbor. She was sitting on the chair. She has right facial droop and right sided weakness. She was last seen normal yesterday morning. Discussed with her neighbor and son , she has history of hypertension and chronic left lower extremity lymphedema. No previous surgeries. She does not smoke and occasionally drinks. She takes Norvasc, Lasix and potassium. 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 Clinically worse less responsive. I am concerned about her airway family at bedside undecided about intubation. Discussed with RN, respiratory therapy regarding pulmonary toilet. Also discussed with crystal finisher patient may need intubation if family consents. Echocardiogram with EF of 60%. LDL 106 ct Lipitor. Continue aspirin discussed with neurology start anticoagulation in the next few days if patient stable rpt HCT in 2-3 days. Consult dietitian for tube feeding. Continue PT, OT and ST f/u rehab MD consult NEUROLOGY RECOMMENDS HOSPICE DC TO INPT HOSPICE TODAY New-onset A. fib. TSH therapeutic. Patient with controlled ventricular response on Lopressor, wean Cardizem drip to keep heart rate less than 100. GNR UTI. Currently normothermic on Rocephin Follow-up urine culture Hypoxia. Pulmonary toilet, nebulization and oxygen as needed. DVT prophylaxis with SCD and early ambulation. Pharmacological prophylaxis per neurology. DC TO INPATIENT HOSPICE TODAY [facility] RN AND FAMILY AND PALLIATIVE AND HOSPICE Code Status: DNR Discussed Condition With: RN AND FAMILY AND PALLIATIVE AND HOSPICE Discharge Planning: DC TO HOSPICE INPATIENT TODAY
--- NOTE | 2018-03-04 11:32 | P.CONPAL ---
Consult Service: Palliative Care Requesting Physician: Pedro Chatterjee Reason for Consult: a. To assist with evaluation and management of symptoms including: Shortness of breath, secretions. b. To assist medical decision maker(s) with: better understanding of current medical conditions; weighing benefits/burdens of medical treatment options; making medical treatment decisions. Primary Care Provider: UNKNOWN History of Present Illness History of Present Illness: Ms. Macario is an 88-year-old female with a medical history significant for hypertension and lymphedema to left leg. Patient presented to ED on 03/01/18 via EMS for evaluation of altered mental status. Patient was found home by her friend with one-sided weakness and inability to talk. CT of the brain revealed old lacunar stroke. CT angiogram of the head showed totally occluded left internal carotid artery, next CTA showed occlusion of the proximal left internal carotid artery. MRI of the brain revealed acute subacute MCA stroke. UA positive for nitrates. Clinical course complicated by atrial fibrillation with RVR, patient on Cardizem drip. Echocardiogram revealing EF of 60-65%, mild to moderate left ventricular hypertrophy and trace mitral valve regurgitation. Chest x-ray revealing cardiomegaly, negative for acute process. EKG revealing atrial fibrillation with moderate T wave abnormality. Neurology Dr. Silvestre consulted on 03/02/18. Palliative care has been consulted for further clarifications of goals of care given overall poor prognosis for meaningful neurological recovery. Patient seen in medical ICU, obtunded. Briefly opening eyes to tactile stimuli. Currently O2 via mask at 10 L, coarse breath sounds with oral secretions noted. Urine culture positive for E. coli. Laboratory workup today revealing WBC of 15.6. Met with patient's darlene Corral at bedside. In this first visit, introduced the role of palliative care and advance illness in regards to symptom management as well as support surrounding goals of care. Sounds receptive to palliative care consult. Reviewed patient's past medical history, psychosocial history, events leading to this hospitalization, clinical course and current plan of care. Patient's son Allan tells me that patient was in good state of health until 03/01, patient residing independently and fully independent with all ADLs. No physical or cognitive deficits. Family presenting patient's living will. Reviewed patient's overall poor prognosis for a meaningful neurological recovery in the setting of MCA stroke. Family reports discussing overall poor prognosis with neurology Dr. Silvestre. Family wishing to honor patient's advanced directives/living well and allowed natural to occur. Patient was made DNR/DNI. Reviewed hospice philosophy and benefits. Family electing to transition patient to comfort-directed care with hospice. Goal is to transfer patient to hospice care center for symptom management of shortness of breath, secretions and end-of-life care. Hospice referral has been sent. Case discussed with Dr. Farfan and [employer] administrator Ana. Case discussed with bedside RN Karie. Function/Cognitive Trajectory: Patient residing independently prior to this acute event. Fully independent with all ADLs. No cognitive or functional deficit. Review of Systems unobtainable due to mental condition PMFSH - History History Provided By: Family Member - Medical History Medical History: Medical History (Last Updated 03/04/18 @ 11:15 by Adelina Martinez APRN) HTN (hypertension) Lymphedema - Surgical History Surgical History: Surgical History (Last Updated 03/04/18 @ 11:15 by Adelina Martinez APRN) No history of previous surgery - Social History I have reviewed the patient's Social History: Yes - Tobacco History Second Hand Smoke Exposure: No Tobacco Use In Past 30 Days: No Smoking Status: Never smoker - Alcohol History How Often Do You Have a Drink Containing Alcohol: Monthly or less - Substance Use History Substance History: No History of Abuse - Travel History Recent Travel in the [place] Within the Last 8 Weeks: No Recent Travel Out of the Country Within the Last 8 Weeks: No - Immunization History Tetanus Immunization: Unable to Assess Hx Influenza Vaccine This Season: No Medications and Allergies Active Medications: Active Medications Al Hydroxide/Mg Hydroxide (Milk Of Lucina Liq) 30 ml PO Q12H PRN PRN Reason: Mild Constipation Albuterol (Albuterol Neb (Prn)) 2.5 mg NEB Q2HR NEB PRN PRN Reason: DYSPNEA Last Admin: 03/03/18 17:13 Dose: 2.5 mg Albuterol (Albuterol Neb (Bigg)) 2.5 mg NEB Q8HR NEB BIGG Last Admin: 03/04/18 09:07 Dose: 2.5 mg Aspirin (Aspirin) 325 mg NG/OG DAILY BIGG Last Admin: 03/04/18 09:59 Dose: 325 mg Atorvastatin Calcium (Lipitor) 20 mg NG/OG HS BIGG Last Admin: 03/03/18 19:59 Dose: 20 mg Bisacodyl (Dulcolax Supp) 10 mg RECTAL DAILY PRN PRN Reason: SEVERE CONSITIPATION Dextrose (D50w Vial) 50 ml IV.PUSH UNSCH PRN PRN Reason: PER HYPOGLYCEMIA PROTOCOL Glucagon (Glucagon Inj) 1 mg OTHER UNSCH PRN PRN Reason: for Hypoglycemia Protocol Hyoscyamine (Levsin) 0.125 mg NG/OG Q4H [facility] Last Admin: 03/04/18 09:59 Dose: 0.125 mg Sodium Chloride (Ns Inj) 1,000 mls @ 50 mls/hr IV.CONT .Q20H [facility] Last Infusion: 03/04/18 08:13 Dose: 50 mls/hr Diltiazem HCl 125 mg/ Sodium (Chloride) 125 mls @ 5 mls/hr IV.CONT TITRATE PRN ; Protocol PRN Reason: Per Protocol Last Admin: 03/04/18 02:15 Dose: 10 mg/hr, 10 mls/hr Ceftriaxone Sodium 1,000 mg/ (Sodium Chloride) 100 mls @ 200 mls/hr IV.SIG Q24H [facility] Last Infusion: 03/03/18 14:00 Dose: Infused Phenylephrine HCl 40 mg/ (Sodium Chloride) 500 mls @ 30 mls/hr IV.CONT TITRATE PRN; Protocol PRN Reason: Per Protocol Insulin Aspart (Novolog Insulin Correctional Sugar Inj) 0 unit SQ ACHS [facility]; Protocol Last Admin: 03/04/18 10:00 Dose: Not Given Labetalol HCl (Trandate Inj) 10 mg IV.PUSH Q2H PRN PRN Reason: For SBP > 220 or DBP > 120 Lactulose (Lactulose Liq) 30 ml PO DAILY PRN PRN Reason: SEVERE CONSITIPATION Lansoprazole (Prevacid Solutab) 15 mg NG/OG DAILY [facility] Last Admin: 03/04/18 09:59 Dose: 15 mg Metoprolol Tartrate (Lopressor) 25 mg NG/OG BID [facility] Last Admin: 03/04/18 10:00 Dose: 25 mg Senna/Docusate Sodium (Denisha-Colace) 1 tab PO BID [facility] Last Admin: 03/04/18 10:00 Dose: 1 tab Sennosides (Senokot) 17.2 mg PO Q12H PRN PRN Reason: Moderate Constipation Sodium Chloride (Ns Flush) 2 ml IV.FLUSH BID [facility] Last Admin: 03/04/18 10:00 Dose: 2 ml Sodium Chloride (Ns Flush) 2 ml IV.FLUSH PRN PRN PRN Reason: FLUSH AFTER USING IV ACCESS Terbutaline Sulfate (Brethine Inj) 1 mg SQ UNSCH PRN PRN Reason: For Extravasation Allergies Allergy/AdvReac Type Severity Reaction Status Date / Time losartan AdvReac Rash Verified 03/01/18 13:17 procaine AdvReac Hives Verified 03/01/18 13:17 Home Medications Medication Instructions Recorded Confirmed Type amlodipine 10 mg PO DAILY 03/01/18 03/01/18 History furosemide 20 mg PO DAILY 03/01/18 03/01/18 History potassium chloride 10 meq PO DAILY 03/01/18 03/01/18 History Advance Directives Living Will: Yes Healthcare Surrogate: Yes Physical Exam Vital Signs: Vital Signs - 24 hr 03/03/18 11:00 03/03/18 11:30 03/03/18 12:00 Temperature Pulse Rate 86 84 79 Respiratory Rate 34 H 36 H 44 H Blood Pressure 152/69 H 139/66 154/66 H Pulse Oximetry 97 97 97 03/03/18 12:30 03/03/18 13:00 03/03/18 13:30 Temperature Pulse Rate 84 81 82 Respiratory Rate 25 H 53 H 42 H Blood Pressure 146/69 H 161/74 H 150/65 H Pulse Oximetry 96 97 97 03/03/18 14:00 03/03/18 14:30 03/03/18 15:00 Temperature Pulse Rate 86 80 90 Respiratory Rate 37 H 44 H 48 H Blood Pressure 140/63 168/69 H 150/80 H Pulse Oximetry 97 96 96 03/03/18 15:30 03/03/18 15:31 03/03/18 16:00 Temperature 98.7 F Pulse Rate 94 H 93 H 99 H Respiratory Rate 58 H 16 53 H Blood Pressure 155/67 H 161/73 H Pulse Oximetry 96 97 03/03/18 16:30 03/03/18 17:00 03/03/18 17:12 Temperature Pulse Rate 98 H 100 H 89 Respiratory Rate 72 H 32 H 20 Blood Pressure 162/74 H 157/63 H Pulse Oximetry 98 99 03/03/18 17:30 03/03/18 18:00 03/03/18 19:00 Temperature 98.1 F Pulse Rate 98 H 94 H 94 H Respiratory Rate 30 H 48 H 31 H Blood Pressure 154/65 H 157/67 H 142/74 H Pulse Oximetry 99 98 100 03/03/18 19:30 03/03/18 20:00 03/03/18 20:30 Temperature 97.4 F L Pulse Rate 98 H 93 H 93 H Respiratory Rate 40 H 34 H 60 H Blood Pressure 150/78 H 151/70 H 148/72 H Pulse Oximetry 100 100 100 03/03/18 20:42 03/03/18 21:00 03/03/18 21:30 Temperature Pulse Rate 83 81 Respiratory Rate 25 H 22 Blood Pressure 154/63 H 139/65 Pulse Oximetry 100 100 100 03/03/18 22:00 03/03/18 22:30 03/03/18 23:00 Temperature Pulse Rate 78 76 71 Respiratory Rate 24 24 23 Blood Pressure 135/66 147/65 H 136/76 Pulse Oximetry 100 100 100 03/03/18 23:30 03/04/18 00:00 03/04/18 00:20 Temperature 97.3 F L Pulse Rate 74 69 65 Respiratory Rate 30 H 27 H 22 Blood Pressure 150/66 H 131/68 Pulse Oximetry 100 100 03/04/18 00:30 03/04/18 01:00 03/04/18 01:30 Temperature Pulse Rate 75 78 80 Respiratory Rate 20 21 21 Blood Pressure 140/62 141/65 H 156/75 H Pulse Oximetry 100 100 99 03/04/18 02:00 03/04/18 02:30 03/04/18 03:00 Temperature Pulse Rate 75 76 80 Respiratory Rate 22 20 23 Blood Pressure 142/64 H 160/67 H 154/70 H Pulse Oximetry 100 100 100 03/04/18 03:30 03/04/18 04:00 03/04/18 04:30 Temperature 97.3 F L Pulse Rate 82 82 76 Respiratory Rate 20 21 23 Blood Pressure 164/70 H 159/70 H 156/68 H Pulse Oximetry 100 100 100 03/04/18 05:00 03/04/18 05:30 03/04/18 06:00 Temperature Pulse Rate 79 76 85 Respiratory Rate 21 20 21 Blood Pressure 161/72 H 159/70 H 154/85 H Pulse Oximetry 100 99 99 03/04/18 06:30 03/04/18 07:00 03/04/18 07:30 Temperature Pulse Rate 86 79 77 Respiratory Rate 24 19 20 Blood Pressure 159/71 H 137/65 151/67 H Pulse Oximetry 100 98 96 03/04/18 07:45 03/04/18 08:00 03/04/18 08:15 Temperature 97.5 F L Pulse Rate 78 78 76 Respiratory Rate 24 24 21 Blood Pressure 145/67 H Pulse Oximetry 98 95 93 L 03/04/18 08:30 03/04/18 08:45 03/04/18 09:00 Temperature Pulse Rate 82 73 79 Respiratory Rate 20 22 22 Blood Pressure 146/62 H 146/65 H Pulse Oximetry 93 L 93 L 93 L 03/04/18 09:10 03/04/18 09:15 03/04/18 09:30 Temperature Pulse Rate 76 77 76 Respiratory Rate 22 21 23 Blood Pressure 154/67 H Pulse Oximetry 93 L 94 L 94 L 03/04/18 09:45 03/04/18 10:00 03/04/18 10:15 Temperature Pulse Rate 74 76 77 Respiratory Rate 21 22 24 Blood Pressure 144/66 H Pulse Oximetry 95 94 L 93 L I&O: Intake & Output 03/02/18 03/03/18 03/04/18 03/05/18 06:59 06:59 06:59 06:59 Intake Total 1300 / 1300 2225 / 2225 350 / 350 Output Total 1850 / 1850 175 / 175 Balance -550 / -550 2049 / 2049 350 / 350 Weight 64.6 kg 63 kg 66.5 kg Physical Exam: CONSTITUTIONAL/GENERAL: Elderly female lying in bed in moderate distress secondary to increased work of breathing, oral secretions. TUBES/LINES/DRAINS: PIV, facemask. SKIN: No jaundice, rashes, or lesions. Ecchymoses on upper extremities. No wounds seen anteriorly. Skin temperature appropriate. Not diaphoretic. HEAD: Atraumatic. Normocephalic. EYES: Pupils equal and round and reactive. No scleral icterus. No injection or drainage. Fundi not examined. ENT: Unable to evaluate hearing secondary to clinical condition. Nose without bleeding or purulent drainage. Moist oral mucosa. Moderate amount of clear oral secretions noted. NECK: Trachea midline. Supple, nontender. CARDIOVASCULAR: Regular rate and rhythm without murmurs, gallops, or rubs. No JVD. Peripheral pulses symmetric. RESPIRATORY/CHEST: Symmetric, unlabored respirations. Coarse breath sounds bilaterally. O2 via facemask. GASTROINTESTINAL: Abdomen soft, non-tender, nondistended. Bowel sounds present. GENITOURINARY: Without palpable bladder distension. MUSCULOSKELETAL: Extremities without clubbing, cyanosis, or edema. No joint tenderness or effusion noted. No calf tenderness. No mottling or clubbing. LYMPHATICS: Lymphedema to left leg NEUROLOGICAL: Obtunded. Not following commands. PSYCHIATRIC: Unable to evaluate given condition. Calm. Diagnostic Tests Laboratory: Laboratory Results - last 72 hr 03/01/18 03/01/18 03/01/18 08:15 11:30 16:22 WBC RBC Hgb Hct MCV MCH MCHC RDW Plt Count MPV Neut % (Auto) Lymph % (Auto) Rock % (Auto) Eos % (Auto) Baso % (Auto) Neut # (Auto) Lymph # (Auto) Rock # (Auto) Eos # (Auto) Baso # (Auto) WBC Differential Differential Comment Puncture Site Patient Temperature O2 Saturation ABG pH ABG pCO2 ABG pO2 ABG HCO3 ABG O2 Content ABG Base Excess ABG Methemoglobin Wolf Test Hemoglobin Carboxyhemoglobin O2 Delivery Device Liter Flow Critical Value Sodium Potassium Chloride Carbon Dioxide Anion Gap BUN Creatinine Estimated GFR POC Glucose 138 H 120 H Random Glucose Hemoglobin A1c Calcium Magnesium Total Bilirubin AST ALT Alkaline Phosphatase B-Natriuretic Peptide Total Protein Albumin Triglycerides Cholesterol LDL Cholesterol, Calc HDL Cholesterol Cholesterol/HDL Ratio Urine Color Yellow Urine Clarity Clear Urine pH 6.0 Ur Specific Raccoon 1.005 Urine Protein Negative Urine Glucose (UA) Negative Urine Ketones Negative Urine Occult Blood Negative Urine Nitrate Positive H Urine Bilirubin Negative Urine Urobilinogen Less than 2 Ur Leukocyte Esterase Small H Urine RBC 1 Urine WBC 12 H Urine Bacteria Few H Micro UA Comment Cath-culture ind Ur Microscopic Review Microscopic reviewed Urine Culture Comments Cath-cult indicated 03/01/18 03/02/18 03/02/18 20:17 03:19 03:19 WBC RBC Hgb Hct MCV MCH MCHC RDW Plt Count MPV Neut % (Auto) Lymph % (Auto) Rock % (Auto) Eos % (Auto) Baso % (Auto) Neut # (Auto) Lymph # (Auto) Rock # (Auto) Eos # (Auto) Baso # (Auto) WBC Differential Differential Comment Puncture Site Patient Temperature O2 Saturation ABG pH ABG pCO2 ABG pO2 ABG HCO3 ABG O2 Content ABG Base Excess ABG Methemoglobin Wolf Test Hemoglobin Carboxyhemoglobin O2 Delivery Device Liter Flow Critical Value Sodium 140 Potassium 4.3 Chloride 106 Carbon Dioxide 23.5 Anion Gap 11 BUN 17 Creatinine 0.95 Estimated GFR 55 L POC Glucose 119 H Random Glucose 121 H Hemoglobin A1c 5.1 Calcium 8.5 Magnesium Total Bilirubin 0.5 AST 29 ALT 16 Alkaline Phosphatase 99 B-Natriuretic Peptide Total Protein 8.2 Albumin 3.4 Triglycerides 74 Cholesterol 209 H LDL Cholesterol, Calc 106 H HDL Cholesterol 88.7 H Cholesterol/HDL Ratio 2.35 Urine Color Urine Clarity Urine pH Ur Specific Raccoon Urine Protein Urine Glucose (UA) Urine Ketones Urine Occult Blood Urine Nitrate Urine Bilirubin Urine Urobilinogen Ur Leukocyte Esterase Urine RBC Urine WBC Urine Bacteria Micro UA Comment Ur Microscopic Review Urine Culture Comments 03/02/18 03/02/18 03/02/18 07:54 11:47 17:24 WBC RBC Hgb Hct MCV MCH MCHC RDW Plt Count MPV Neut % (Auto) Lymph % (Auto) Rock % (Auto) Eos % (Auto) Baso % (Auto) Neut # (Auto) Lymph # (Auto) Rock # (Auto) Eos # (Auto) Baso # (Auto) WBC Differential Differential Comment Puncture Site Patient Temperature O2 Saturation ABG pH ABG pCO2 ABG pO2 ABG HCO3 ABG O2 Content ABG Base Excess ABG Methemoglobin Wolf Test Hemoglobin Carboxyhemoglobin O2 Delivery Device Liter Flow Critical Value Sodium Potassium Chloride Carbon Dioxide Anion Gap BUN Creatinine Estimated GFR POC Glucose 110 124 H 100 Random Glucose Hemoglobin A1c Calcium Magnesium Total Bilirubin AST ALT Alkaline Phosphatase B-Natriuretic Peptide Total Protein Albumin Triglycerides Cholesterol LDL Cholesterol, Calc HDL Cholesterol Cholesterol/HDL Ratio Urine Color Urine Clarity Urine pH Ur Specific Raccoon Urine Protein Urine Glucose (UA) Urine Ketones Urine Occult Blood Urine Nitrate Urine Bilirubin Urine Urobilinogen Ur Leukocyte Esterase Urine RBC Urine WBC Urine Bacteria Micro UA Comment Ur Microscopic Review Urine Culture Comments 03/02/18 03/03/18 03/03/18 20:47 03:31 08:13 WBC RBC Hgb Hct MCV MCH MCHC RDW Plt Count MPV Neut % (Auto) Lymph % (Auto) Rock % (Auto) Eos % (Auto) Baso % (Auto) Neut # (Auto) Lymph # (Auto) Rock # (Auto) Eos # (Auto) Baso # (Auto) WBC Differential Differential Comment Puncture Site Left brachial Patient Temperature 98.6 O2 Saturation 90 ABG pH 7.41 ABG pCO2 33 L ABG pO2 64 ABG HCO3 21 L ABG O2 Content 15.7 ABG Base Excess -3.1 L ABG Methemoglobin 1.0 Wolf Test Present Hemoglobin 12.5 Carboxyhemoglobin 1.2 O2 Delivery Device Sm Liter Flow 10.00 Critical Value No Sodium Potassium Chloride Carbon Dioxide Anion Gap BUN Creatinine Estimated GFR POC Glucose 113 H 120 H Random Glucose Hemoglobin A1c Calcium Magnesium Total Bilirubin AST ALT Alkaline Phosphatase B-Natriuretic Peptide Total Protein Albumin Triglycerides Cholesterol LDL Cholesterol, Calc HDL Cholesterol Cholesterol/HDL Ratio Urine Color Urine Clarity Urine pH Ur Specific Raccoon Urine Protein Urine Glucose (UA) Urine Ketones Urine Occult Blood Urine Nitrate Urine Bilirubin Urine Urobilinogen Ur Leukocyte Esterase Urine RBC Urine WBC Urine Bacteria Micro UA Comment Ur Microscopic Review Urine Culture Comments 03/03/18 03/03/18 03/03/18 10:46 10:46 10:46 WBC 15.6 H RBC 3.79 L Hgb 12.7 Hct 38.3 MCV 101.1 H MCH 33.7 MCHC 33.3 RDW 13.9 Plt Count 219 MPV 8.9 Neut % (Auto) 88.4 H Lymph % (Auto) 3.3 L Rock % (Auto) 8.2 H Eos % (Auto) 0.0 Baso % (Auto) 0.1 Neut # (Auto) 13.7 H Lymph # (Auto) 0.5 L Rock # (Auto) 1.3 H Eos # (Auto) 0.0 Baso # (Auto) 0.0 WBC Differential . Differential Comment Auto diff final Puncture Site Patient Temperature O2 Saturation ABG pH ABG pCO2 ABG pO2 ABG HCO3 ABG O2 Content ABG Base Excess ABG Methemoglobin Wolf Test Hemoglobin Carboxyhemoglobin O2 Delivery Device Liter Flow Critical Value Sodium 145 Potassium 3.8 Chloride 113 H Carbon Dioxide 23.3 Anion Gap 9 BUN 22 H Creatinine 0.94 Estimated GFR 56 L POC Glucose Random Glucose 126 H Hemoglobin A1c Calcium 8.6 Magnesium 2.2 Total Bilirubin AST ALT Alkaline Phosphatase B-Natriuretic Peptide 615 H Total Protein Albumin Triglycerides Cholesterol LDL Cholesterol, Calc HDL Cholesterol Cholesterol/HDL Ratio Urine Color Urine Clarity Urine pH Ur Specific Raccoon Urine Protein Urine Glucose (UA) Urine Ketones Urine Occult Blood Urine Nitrate Urine Bilirubin Urine Urobilinogen Ur Leukocyte Esterase Urine RBC Urine WBC Urine Bacteria Micro UA Comment Ur Microscopic Review Urine Culture Comments 03/03/18 03/03/18 03/03/18 12:59 17:20 20:09 WBC RBC Hgb Hct MCV MCH MCHC RDW Plt Count MPV Neut % (Auto) Lymph % (Auto) Rock % (Auto) Eos % (Auto) Baso % (Auto) Neut # (Auto) Lymph # (Auto) Rock # (Auto) Eos # (Auto) Baso # (Auto) WBC Differential Differential Comment Puncture Site Patient Temperature O2 Saturation ABG pH ABG pCO2 ABG pO2 ABG HCO3 ABG O2 Content ABG Base Excess ABG Methemoglobin Wolf Test Hemoglobin Carboxyhemoglobin O2 Delivery Device Liter Flow Critical Value Sodium Potassium Chloride Carbon Dioxide Anion Gap BUN Creatinine Estimated GFR POC Glucose 136 H 103 112 H Random Glucose Hemoglobin A1c Calcium Magnesium Total Bilirubin AST ALT Alkaline Phosphatase B-Natriuretic Peptide Total Protein Albumin Triglycerides Cholesterol LDL Cholesterol, Calc HDL Cholesterol Cholesterol/HDL Ratio Urine Color Urine Clarity Urine pH Ur Specific Raccoon Urine Protein Urine Glucose (UA) Urine Ketones Urine Occult Blood Urine Nitrate Urine Bilirubin Urine Urobilinogen Ur Leukocyte Esterase Urine RBC Urine WBC Urine Bacteria Micro UA Comment Ur Microscopic Review Urine Culture Comments 03/04/18 06:14 WBC RBC Hgb Hct MCV MCH MCHC RDW Plt Count MPV Neut % (Auto) Lymph % (Auto) Rock % (Auto) Eos % (Auto) Baso % (Auto) Neut # (Auto) Lymph # (Auto) Rock # (Auto) Eos # (Auto) Baso # (Auto) WBC Differential Differential Comment Puncture Site Patient Temperature O2 Saturation ABG pH ABG pCO2 ABG pO2 ABG HCO3 ABG O2 Content ABG Base Excess ABG Methemoglobin Wolf Test Hemoglobin Carboxyhemoglobin O2 Delivery Device Liter Flow Critical Value Sodium Potassium Chloride Carbon Dioxide Anion Gap BUN Creatinine Estimated GFR POC Glucose 105 Random Glucose Hemoglobin A1c Calcium Magnesium Total Bilirubin AST ALT Alkaline Phosphatase B-Natriuretic Peptide Total Protein Albumin Triglycerides Cholesterol LDL Cholesterol, Calc HDL Cholesterol Cholesterol/HDL Ratio Urine Color Urine Clarity Urine pH Ur Specific Raccoon Urine Protein Urine Glucose (UA) Urine Ketones Urine Occult Blood Urine Nitrate Urine Bilirubin Urine Urobilinogen Ur Leukocyte Esterase Urine RBC Urine WBC Urine Bacteria Micro UA Comment Ur Microscopic Review Urine Culture Comments Result Diagrams: 03/03/18 10:46 03/03/18 10:46 Microbiology: Microbiology 03/01/18 08:15 Urine Culture - Final Catheterized Urine Escherichia coli Patient/Family Conference Present at Family Conference: Lillie Lemus and Danilo. Family Conference Time: 43 Family Conference Location: Bedside Issues Discussed: * Palliative care role, purpose, approach * Additional medical, psychosocial, and spiritual history * Patients general health, functional status, and cognitive changes in the months leading up to the current hospitalization * Patient/family understanding of the current medical problems * Patient/family understanding of prognosis * Patients goals of care as best understood from advance directives and/or conversations and/or values * Current medical treatment options and benefits/burdens of those options * Likely scenarios comparing ongoing aggressive care with a transition to comfort measures only * Questions answered to the best of my ability * Palliative care contact information provided * Hospice philosophy and benefits Assessment and Plan - Disease Oriented Problem List (1) Acute CVA (cerebrovascular accident) (2) Atrial fibrillation (3) UTI (urinary tract infection) (4) Hypoxia - Symptom Scale (1) Shortness of breath 0-10 Scale: Unable to quantify (2) Excessive oral secretions 0-10 Scale: Unable to quantify Pertinent Non-Medical Issues: Psychosocial: Patient originally from [place]. Moved to [place] over 30 years ago. , in 2010. 2 sons. Former corporate secretary, no service. Spiritual: No hinduism affiliation. Legal: Advance directives completed. Copy file. Ethical issues impacting care: No ethical issues identified. Important Contacts: Milind Lemus Milind Paredes Prognosis: Ms. Macario is an 88-year-old female with a medical history significant for hypertension and lymphedema to left leg. Patient presented to ED on 03/01/18 via EMS for evaluation of altered mental status. She was found with acute subacute MCA stroke and totally occluded left internal carotid artery. Patient with a very poor prognosis for meaningful neurological recovery. Palliative care has been consulted for further clarification of goals of care given the above. Patient appears hospice appropriate should family elects comfort- directed care. Life expectancy of hours to days if illness run its natural course. Code Status: No Code DNR Plan: * CODE STATUS: DNR/DNI. * HEALTHCARE DECISION-MAKING: Patient unable to participating medical decision making secondary to clinical condition, severe CVA. Patient is not expected to regain medical decision-making. Advanced directives completed, patient has designated her son Allan Macario as healthcare surrogate decision maker, alternate is son Reggie Macario. Both sons participating in medical decision making. * GOALS OF CARE: Patient's sons Allan and Ayan elected to transition patient to comfort-directed care with hospice given overall poor prognosis for meaningful neurological recovery and patient's known wishes as is stated in her living will. Goal is to transfer patient to hospice care center for symptom management of shortness of breath, secretions and end-of-life care. * SYMPTOMS: = Comfort-directed plan of care in place. Morphine 2 mg IV and lorazepam 0.5 mg IV available as needed for pain or shortness of breath. Levsin available as needed for oral secretions. * Palliative care contact information has been provided to patient's family. * Case discussed with Dr. Farfan, bedside RN Karie, managed care liaison Ana. Time Spent Total Floor Time (mins): 65 (Total time to include review of medical records, physical exam, goals of care conversation with patient's family, case discussion with attending, bedside nurse and hospice.) >50% Time in Counseling or Coordination of Care: Yes (Total visit time = 65 minutes; > 50% spent counseling/coordinating care) Appreciation Thank you for the opportunity to participate in the care of Lynn Macario. Attestation Attestation: To help prompt me to consider important information that might be impacting today's encounter and assessment, information from prior notes written by myself or my colleagues may have been "brought forward" into today's note. My signature on this note, however, is an attestation that I personally performed the exam, history, and/or decision-making noted today, and, unless otherwise indicated, the interactions with patient, family, and staff as well as the review of records all occurred today. I also attest that the listed assessment and stated plan reflect my best clinical judgment today based on the combination of historical information, prior notes, and today's exam/ interactions. When time spent is documented, it refers only to time spent today by the signer, or if indicated, combined time spent today by collaborating physician/nurse practitioner.
--- NOTE | 2018-03-04 11:34 | P.DS ---
Date of admission: 03/01/18 09:41 Primary care physician: UNKNOWN Attending physician on discharge: Reggie Farfan Anticipated date of discharge: 03/04/18 Brief History from admission: Edda is an elderly female who was found unresponsive by her neighbor. She was sitting on the chair. She has right facial droop and right sided weakness. She was last seen normal yesterday morning. Discussed with her neighbor and son, she has history of hypertension and chronic left lower extremity lymphedema. No previous surgeries. She does not smoke and occasionally drinks. She takes Norvasc, Lasix and potassium. 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 EKG interpreted by me with atrial fibrillation with bigeminy. All other systems reviewed negative Patient update on day of discharge: Chief Complaint: Found unresponsive History of Present Illness: Edda is an elderly female who was found unresponsive by her neighbor. She was sitting on the chair. She has right facial droop and right sided weakness. She was last seen normal yesterday morning. Discussed with her neighbor and son, she has history of hypertension and chronic left lower extremity lymphedema. No previous surgeries. She does not smoke and occasionally drinks. She takes Norvasc, Lasix and potassium. 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 EKG interpreted by me with atrial fibrillation with bigeminy. All other systems reviewed negative 03-02 Follow-up CVA. Remains lethargic awakens and withdraws from pain seen with neighbors 03-03 F/U CVA. Today she is less responsive receiving simple mask. I am concerned about her airway family at bedside undecided about intubation. Discussed with RN, respiratory therapy regarding pulmonary toilet. 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 She was sitting on the chair. She has right facial droop and right sided weakness. She was last seen normal yesterday morning. Discussed with her neighbor and son, she has history of hypertension and chronic left lower extremity lymphedema. No previous surgeries. She does not smoke and occasionally drinks. She takes Norvasc, Lasix and potassium. 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 EKG interpreted by me with atrial fibrillation with bigeminy. All other systems reviewed negative 03-02 Follow-up CVA. Remains lethargic awakens and withdraws from pain seen with neighbors 03-03 F/U CVA. Today she is less responsive receiving simple mask. I am concerned about her airway family at bedside undecided about intubation. Discussed with RN, respiratory therapy regarding pulmonary toilet. Also discussed with card fixer patient may need intubation if family consents 03-04 FAMILY WANTS HOSPICE PALLIATIVE CARE ON BOARD WILL TRANSFER TO INPATIENT HOSPICE TODAY WILL DO PAPERWORK REMAINS NONVERBAL SEEN BY DR JAFFE WHO RECOMMENDS HOSPICE FAMILY AGREES - Time Spent with Patient Total time spent providing and/or coordinating discharge services: Greater than 30 minutes - Quality: VTE Deep Vein Thrombosis/Pulmonary Embolism Present on Admission: No Exam Vital signs: Vital Signs 03/03/18 11:30 03/03/18 12:00 03/03/18 12:30 Temperature Pulse Rate 84 79 84 Respiratory Rate 36 H 44 H 25 H Blood Pressure 139/66 154/66 H 146/69 H Pulse Oximetry 97 97 96 03/03/18 13:00 03/03/18 13:30 03/03/18 14:00 Temperature Pulse Rate 81 82 86 Respiratory Rate 53 H 42 H 37 H Blood Pressure 161/74 H 150/65 H 140/63 Pulse Oximetry 97 97 97 03/03/18 14:30 03/03/18 15:00 03/03/18 15:30 Temperature Pulse Rate 80 90 94 H Respiratory Rate 44 H 48 H 58 H Blood Pressure 168/69 H 150/80 H 155/67 H Pulse Oximetry 96 96 96 03/03/18 15:31 03/03/18 16:00 03/03/18 16:30 Temperature 98.7 F Pulse Rate 93 H 99 H 98 H Respiratory Rate 16 53 H 72 H Blood Pressure 161/73 H 162/74 H Pulse Oximetry 97 98 03/03/18 17:00 03/03/18 17:12 03/03/18 17:30 Temperature 98.1 F Pulse Rate 100 H 89 98 H Respiratory Rate 32 H 20 30 H Blood Pressure 157/63 H 154/65 H Pulse Oximetry 99 99 03/03/18 18:00 03/03/18 19:00 03/03/18 19:30 Temperature Pulse Rate 94 H 94 H 98 H Respiratory Rate 48 H 31 H 40 H Blood Pressure 157/67 H 142/74 H 150/78 H Pulse Oximetry 98 100 100 03/03/18 20:00 03/03/18 20:30 03/03/18 20:42 Temperature 97.4 F L Pulse Rate 93 H 93 H Respiratory Rate 34 H 60 H Blood Pressure 151/70 H 148/72 H Pulse Oximetry 100 100 100 03/03/18 21:00 03/03/18 21:30 03/03/18 22:00 Temperature Pulse Rate 83 81 78 Respiratory Rate 25 H 22 24 Blood Pressure 154/63 H 139/65 135/66 Pulse Oximetry 100 100 100 03/03/18 22:30 03/03/18 23:00 03/03/18 23:30 Temperature Pulse Rate 76 71 74 Respiratory Rate 24 23 30 H Blood Pressure 147/65 H 136/76 150/66 H Pulse Oximetry 100 100 100 03/04/18 00:00 03/04/18 00:20 03/04/18 00:30 Temperature 97.3 F L Pulse Rate 69 65 75 Respiratory Rate 27 H 22 20 Blood Pressure 131/68 140/62 Pulse Oximetry 100 100 03/04/18 01:00 03/04/18 01:30 03/04/18 02:00 Temperature Pulse Rate 78 80 75 Respiratory Rate 21 21 22 Blood Pressure 141/65 H 156/75 H 142/64 H Pulse Oximetry 100 99 100 03/04/18 02:30 03/04/18 03:00 03/04/18 03:30 Temperature 97.3 F L Pulse Rate 76 80 82 Respiratory Rate 20 23 20 Blood Pressure 160/67 H 154/70 H 164/70 H Pulse Oximetry 100 100 100 03/04/18 04:00 03/04/18 04:30 03/04/18 05:00 Temperature Pulse Rate 82 76 79 Respiratory Rate 21 23 21 Blood Pressure 159/70 H 156/68 H 161/72 H Pulse Oximetry 100 100 100 03/04/18 05:30 03/04/18 06:00 03/04/18 06:30 Temperature Pulse Rate 76 85 86 Respiratory Rate 20 21 24 Blood Pressure 159/70 H 154/85 H 159/71 H Pulse Oximetry 99 99 100 03/04/18 07:00 03/04/18 07:30 03/04/18 07:45 Temperature Pulse Rate 79 77 78 Respiratory Rate 19 20 24 Blood Pressure 137/65 151/67 H Pulse Oximetry 98 96 98 03/04/18 08:00 03/04/18 08:15 03/04/18 08:30 Temperature 97.5 F L Pulse Rate 78 76 82 Respiratory Rate 24 21 20 Blood Pressure 145/67 H 146/62 H Pulse Oximetry 95 93 L 93 L 03/04/18 08:45 03/04/18 09:00 03/04/18 09:10 Temperature Pulse Rate 73 79 76 Respiratory Rate 22 22 22 Blood Pressure 146/65 H Pulse Oximetry 93 L 93 L 93 L 03/04/18 09:15 03/04/18 09:30 03/04/18 09:45 Temperature Pulse Rate 77 76 74 Respiratory Rate 21 23 21 Blood Pressure 154/67 H Pulse Oximetry 94 L 94 L 95 03/04/18 10:00 03/04/18 10:15 Temperature Pulse Rate 76 77 Respiratory Rate 22 24 Blood Pressure 144/66 H Pulse Oximetry 94 L 93 L Intake & Output 03/03/18 03/04/18 03/04/18 18:59 06:59 18:59 Intake Total 225 / 225 125 / 125 Balance 225 / 225 125 / 125 Weight 66.5 kg Intake: IV 225 / 225 125 / 125 Cardizem Inj 125 MG In NS Inj 125 / 125 125 / 125 100 ML @ 5 MG/HR 5 mls/hr IV. CONT TITRATE PRN Rx#:[id number] Rocephin Inj 1,000 MG In NS Inj 100 / 100 100 ML @ 200 mls/hr IV.SIG Q24H GOMEZ Rx#:[id number] Oral 0 / 0 Other: # Urine Diapers 1 Narrative: GENERAL: Well-nourished well-developed on simple mass SKIN: Warm and dry. CARDIOVASCULAR: Irregularly irregular RESPIRATORY: No accessory muscle use. Clear to auscultation. Breath sounds equal bilaterally. GASTROINTESTINAL: Abdomen soft, non-tender, nondistended. MUSCULOSKELETAL: Extremities without clubbing, cyanosis left lower extremity pitting edema. No obvious deformities. NEUROLOGICAL: Lethargic withdraws with painful stimuli obvious right facial droop, right upper and left lower extremity weakness Results Procedures completed during hospitalization: none Completed studies during hospitalization: Laboratory Results WBC 15.6 th/mm3 (4.0-11.0) H 03/03/18 10:46 RBC 3.79 mil/mm3 (4.00-5.30) L 03/03/18 10:46 Hgb 12.7 gm/dL (11.6-15.3) 03/03/18 10:46 Hct 38.3 % (35.0-46.0) 03/03/18 10:46 MCV 101.1 fL (80.0-100.0) H 03/03/18 10:46 MCH 33.7 pg (27.0-34.0) 03/03/18 10:46 MCHC 33.3 % (32.0-36.0) 03/03/18 10:46 RDW 13.9 % (11.6-17.2) 03/03/18 10:46 Plt Count 219 th/mm3 (150-450) 03/03/18 10:46 MPV 8.9 fL (7.0-11.0) 03/03/18 10:46 Prelim Diff (Auto) [place] 03/01/18 07:50 Neut % (Auto) 88.4 % (16.0-70.0) H 03/03/18 10:46 Lymph % (Auto) 3.3 % (9.0-44.0) L 03/03/18 10:46 [place] % (Auto) 8.2 % (0.0-8.0) H 03/03/18 10:46 Eos % (Auto) 0.0 % (0.0-4.0) 03/03/18 10:46 Baso % (Auto) 0.1 % (0.0-2.0) 03/03/18 10:46 Neut # (Auto) 13.7 th/mm3 (1.8-7.7) H 03/03/18 10:46 Lymph # (Auto) 0.5 th/mm3 (1.0-4.8) L 03/03/18 10:46 Williamson # (Auto) 1.3 th/mm3 (0.0-0.9) H 03/03/18 10:46 Eos # (Auto) 0.0 th/mm3 (0.0-0.4) 03/03/18 10:46 Baso # (Auto) 0.0 th/mm3 (0.0-0.2) 03/03/18 10:46 WBC Differential . 03/03/18 10:46 Differential Comment Auto diff final 03/03/18 10:46 PT 11.1 sec (9.8-11.6) 03/01/18 07:50 INR 1.1 Ratio 03/01/18 07:50 APTT 23.8 sec (23.4-31.7) 03/01/18 07:50 Puncture Site Left brachial 03/03/18 03:31 Patient Temperature 98.6 03/03/18 03:31 O2 Saturation 90 % (90-100) 03/03/18 03:31 ABG pH 7.41 (7.380-7.420) 03/03/18 03:31 ABG pCO2 33 mmHg (38-42) L 03/03/18 03:31 ABG pO2 64 mmHg (61-120) 03/03/18 03:31 ABG HCO3 21 mmol/L (22-26) L 03/03/18 03:31 ABG O2 Content 15.7 Vol % (12.0-20.0) 03/03/18 03:31 ABG Base Excess -3.1 mmol/L (-2-2) L 03/03/18 03:31 ABG Methemoglobin 1.0 % (0-2) 03/03/18 03:31 Wolf Test Present 03/03/18 03:31 Hemoglobin 12.5 G/DL (12.0-16.0) 03/03/18 03:31 Carboxyhemoglobin 1.2 % (0-4) 03/03/18 03:31 O2 Delivery Device Sm 03/03/18 03:31 Liter Flow 10.00 L/M 03/03/18 03:31 Critical Value No 03/03/18 03:31 Sodium 145 meq/L (136-145) 03/03/18 10:46 Potassium 3.8 meq/L (3.5-5.1) 03/03/18 10:46 Chloride 113 meq/L (98-107) H 03/03/18 10:46 Carbon Dioxide 23.3 meq/L (21.0-32.0) 03/03/18 10:46 Anion Gap 9 meq/L (5-15) 03/03/18 10:46 BUN 22 mg/dL (7-18) H 03/03/18 10:46 Creatinine 0.94 mg/dL (0.50-1.00) 03/03/18 10:46 Estimated GFR 56 mL/min (>89) L 03/03/18 10:46 POC Glucose 105 mg/dl (68-110) 03/04/18 06:14 Random Glucose 126 mg/dL (74-106) H 03/03/18 10:46 Hemoglobin A1c 5.1 % (4.3-6.0) 03/02/18 03:19 Calcium 8.6 mg/dL (8.5-10.1) 03/03/18 10:46 Magnesium 2.2 mg/dL (1.5-2.5) 03/03/18 10:46 Total Bilirubin 0.5 mg/dL (0.2-1.0) 03/02/18 03:19 AST 29 U/L (15-37) 03/02/18 03:19 ALT 16 U/L (10-53) 03/02/18 03:19 Alkaline Phosphatase 99 U/L (45-117) 03/02/18 03:19 Total Creatine Kinase 47 U/L (26-192) 03/01/18 07:50 Troponin I Less than 0.02 ng/mL (0.02-0.05) L 03/01/18 07:50 B-Natriuretic Peptide 615 pg/mL (0-100) H 03/03/18 10:46 Total Protein 8.2 g/dL (6.4-8.2) 03/02/18 03:19 Albumin 3.4 g/dL (3.4-5.0) 03/02/18 03:19 Triglycerides 74 mg/dL (42-150) 03/02/18 03:19 Cholesterol 209 mg/dL (120-200) H 03/02/18 03:19 LDL Cholesterol, Calc 106 mg/dL (0-99) H 03/02/18 03:19 HDL Cholesterol 88.7 mg/dL (40.0-60.0) H 03/02/18 03:19 Cholesterol/HDL Ratio 2.35 Ratio 03/02/18 03:19 TSH 5.570 uIU/mL (0.358-3.740) H 03/01/18 07:50 Urine Color Yellow (Yellw/Straw) 03/01/18 08:15 Urine Clarity Clear (Clear) 03/01/18 08:15 Urine pH 6.0 (5.0-8.5) 03/01/18 08:15 Ur Specific [place] 1.005 (1.002-1.035) 03/01/18 08:15 Urine Protein Negative mg/dL (Neg-Trace) 03/01/18 08:15 Urine Glucose (UA) Negative mg/dL (Negative) 03/01/18 08:15 Urine Ketones Negative mg/dL (Negative) 03/01/18 08:15 Urine Occult Blood Negative (Negative) 03/01/18 08:15 Urine Nitrate Positive (Negative) H 03/01/18 08:15 Urine Bilirubin Negative (Negative) 03/01/18 08:15 Urine Urobilinogen Less than 2 mg/dL (Less than 2) 03/01/18 08:15 Ur Leukocyte Esterase Small (Negative) H 03/01/18 08:15 Urine RBC 1 /hpf (0-3) 03/01/18 08:15 Urine WBC 12 /hpf (0-5) H 03/01/18 08:15 Urine Bacteria Few /hpf (None) H 03/01/18 08:15 Micro UA Comment Cath-culture ind 03/01/18 08:15 Ur Microscopic Review Microscopic reviewed 03/01/18 08:15 Urine Culture Comments Cath-cult indicated 03/01/18 08:15 Urine Opiates Screen Neg (Neg) 03/01/18 08:15 Ur Barbiturates Screen Neg (Neg) 03/01/18 08:15 Ur Amphetamines Screen Neg (Neg) 03/01/18 08:15 U Benzodiazepines Scrn Neg (Neg) 03/01/18 08:15 Urine Cocaine Screen Neg (Neg) 03/01/18 08:15 U Cannabinoids Screen Neg (Neg) 03/01/18 08:[address] 03/01/18 07:50 CONCLUSION: 1. Mild cerebral atrophy. 2. 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 3. No acute infarct, acute hemorrhage, midline shift or extra-axial fluid collections. . Head CTA 03/01/18 08:16 CONCLUSION: Totally occluded left internal carotid artery with very tenuous intracranial flow reconstitution of the anterior circulation vessels on the left Neck CTA 03/01/18 08:16 CONCLUSION: 1. 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 Head MRI 03/01/18 08:17 CONCLUSION: 1. Evidence of a large area of signal abnormality involving almost the entire left parietal lobe as well as patchy areas within the left basal ganglia and left temporal lobe consistent with acute/subacute infarct in the left middle cerebral artery distribution. 2. Tiny focal areas of signal abnormality are also noted involving the right occipital cortex on the diffusion-weighted images suggesting small acute/ subacute cortical infarcts within the right posterior cerebral artery distribution. 3. No flow-void is identified within the left internal cerebral artery and visualized portion of the left middle cerebral artery. 4. No acute hemorrhage, midline shift or extra-axial bleed. 5. 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 6. Diffuse cerebral atrophy. Chest X-Ray 03/03/18 00:00 CONCLUSION: Slight worsening left perihilar and basilar consolidation. New nasogastric tube. Labs on day of discharge: Labs from last 24 hours 03/04/18 03/03/18 03/03/18 06:14 20:09 17:20 Sodium Potassium Chloride Carbon Dioxide Anion Gap BUN Creatinine Estimated GFR POC Glucose 105 112 H 103 Random Glucose Hemoglobin A1c Calcium Magnesium B-Natriuretic Peptide 03/03/18 03/03/18 03/03/18 12:59 10:46 10:46 Sodium 145 Potassium 3.8 Chloride 113 H Carbon Dioxide 23.3 Anion Gap 9 BUN 22 H Creatinine 0.94 Estimated GFR 56 L POC Glucose 136 H Random Glucose 126 H Hemoglobin A1c Calcium 8.6 Magnesium 2.2 B-Natriuretic Peptide 615 H 03/02/18 03:19 Sodium Potassium Chloride Carbon Dioxide Anion Gap BUN Creatinine Estimated GFR POC Glucose Random Glucose Hemoglobin A1c 5.1 Calcium Magnesium B-Natriuretic Peptide - Impressions ITS Impressions Head CT 03/01/18 07:50 CONCLUSION: 1. Mild cerebral atrophy. 2. 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 3. No acute infarct, acute hemorrhage, midline shift or extra-axial fluid collections. . Head CTA 03/01/18 08:16 CONCLUSION: Totally occluded left internal carotid artery with very tenuous intracranial flow reconstitution of the anterior circulation vessels on the left Neck CTA 03/01/18 08:16 CONCLUSION: 1. 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 Head MRI 03/01/18 08:17 CONCLUSION: 1. Evidence of a large area of signal abnormality involving almost the entire left parietal lobe as well as patchy areas within the left basal ganglia and left temporal lobe consistent with acute/subacute infarct in the left middle cerebral artery distribution. 2. Tiny focal areas of signal abnormality are also noted involving the right occipital cortex on the diffusion-weighted images suggesting small acute/ subacute cortical infarcts within the right posterior cerebral artery distribution. 3. No flow-void is identified within the left internal cerebral artery and visualized portion of the left middle cerebral artery. 4. No acute hemorrhage, midline shift or extra-axial bleed. 5. 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 6. Diffuse cerebral atrophy. Chest X-Ray 03/03/18 00:00 CONCLUSION: Slight worsening left perihilar and basilar consolidation. New nasogastric tube. Discharge Plan - Discharge Disposition Patient Disposition: [facility] - Discharge Condition Condition: Stable - Discharge Order Discharge Orders: Discharge Order (Routine); Ordered 03/04/18 Ordered By: Reggie Farfan - Discharge Details Anticipated Discharge Date: 03/04/18 Discharge Comment: DC TO INPATIENT HOSPICE - Physicians Team Primary Care Provider: UNKNOWN, Attending Provider: Reggie Farfan Other Providers: Daniele Jaffe MD, PhD ; Radha Qureshi DO ; Maria R Crockett MD
[2018-03-04] MEDS ORDERED: Morphine Inj 4 MG/ML Vial IV.PUSH PRN (13:24)
--- NOTE | 2018-03-04 14:28 | P.DIET ---
Nutritional Evaluation Nutrition consult regarding: Diet Evaluation (NPOx3) Objective - Diagnosis Acute Ischemic CVA - Objective % IBW: 107 (IBW = 130#) Body Weight Used for Calculations: Actual (63 kg) Energy Needs - Lower Range (kCal/kg): 25 Energy Needs - Upper Range (kCal/kg): 30 Lower Limit kCal/kg (kCals): 1,575 Upper Limit kCal/kg (kCals): 1,890 Lower Limit Protein Factor (Grams per Kg): 1.0 Upper Limit Protein Factor (Grams per Kg): 1.5 Lower Protein Needs (Protein): 63 Upper Protein Needs (Protein): 95 Dietitian Reviewed in Medical Record: Curent medications, Intake & Output, Labs , Medical history Diet Order: NPO Objective Comments: HgA1c pending Assessment Assessment: Pt. going to Hospice. RD to follow as needed. Recommendations: RD to follow as needed. Dietitian to Monitor: Lab values, Intake & Output, Tube feeding tolerance, Weight change, Medical course
== END 2018-03-04 16:19 | disposition hospice, inpatient (51) | DRG 65 ==
LOC: NEPE 07:47 → EDBD 09:41 → NEDA 09:41 → N03 11:19
PROVIDERS: ADMIT Hospitalist; ATTEND Hospitalist
CPT/HCPCS: 36600; 51798; 70450; 70496; 70498; 70551; 71010; 71045; 80048; 80053; 80061; 80307; 81001; 82550; 82805; 82948; 82962; 83036; 83520; 83735; 83880; 84443; 84484; 85025; 85610; 85730; 87077; 87086; 87186; 90774; 90784; 92610; 93005; 93225; 93306; 94150; 94640; 94664; 94665; 96374; 97110; 97162; 97166; 99285; C8952; C9113; G0195; J0696; J1940; J2060; J3480; J7030; P9612; Q9967